=== PATIENT | female | born 1970 | race Caucasian/White ===

== ENCOUNTER → 2019-02-16 | Outpatient (CLI) | payer MEDICARE, OTHER | END | disposition home or self-care (01) | LOC: LABWHC1 14:25 | PROVIDERS: ATTEND Psychiatry & Neurology Pain Medicine | DX: Z01.818 Encounter for other preprocedural examination (principal); Z51.81 Encounter for therapeutic drug level monitoring | CPT/HCPCS: 36415; 93005 ==

== ENCOUNTER → 2019-06-21 | Outpatient (CLI) | payer MEDICARE, OTHER ==
[2019-06-21 15:02] VITALS: BP 126/74; PULSE 107; TEMP 98.3; BMI 41.2
[2019-06-21 15:54] LABS: HCT 44.4 % (34.0-46.0); HGB 14.7 gm/dL (11.4-16.0); MCH 28.7 pg (25.0-35.0); MCHC 33.1 g/dL (31.0-37.0); MCV 86.8 fL (80.0-100.0); Mean Platelet Volume 6.6; Platelet Count 358 k/uL (150-450); RBC 5.12 m/uL (3.80-5.40); RDW 14.2 % (11.5-15.5); WBC 10.9 k/uL (3.8-10.6)
--- NOTE | 2019-06-21 16:33 | P.HPBAR ---
Bariatric H&P - History & Physicial H&P Date: 06/21/19 History & Physicial: Visit/CC: gastric sleeve consult Patient initial contact: Initial weight: 95.708 kg Initial weight in pounds: 211.00 Height: 5 ft Initial BMI: 41.2 Last weight: Current weight: 95.708 kg Current weight in pounds: 211.00 Current BMI: 41.2 [place] body weight (based on NIH guidelines): 45.359 kg Excess body weight loss: 0.0% The patient is a 49 year-old F who presents for Bariatric Assessment. The patient presents today for initial consultation for gastric sleeve. She has a good understanding of the sleeve gastrectomy. She is morbidly obese. Her BMI is 42. Past Medical History History of Any Multi-Drug Resistant Organisms: None Reported Past Surgical History: Appendectomy, Section, Hysterectomy, Tonsillectomy Past Anesthesia/Blood Transfusion Reactions: Postoperative Nausea & Vomiting (PONV) Smoking Status: Former smoker Surgical - Exam Vital Signs Temp Pulse BP 98.3 F 107 H 126/74 06/21/19 14:52 06/21/19 14:52 06/21/19 14:52 - General well developed, well nourished, no distress - Eyes PERRL - ENT normal pinna - Neck no masses - Respiratory normal expansion - Cardiovascular Rhythm: regular - Abdomen Abdomen: soft, non tender Results - Labs 06/21/19 15:39 Abnormal Lab Results - Last 24 Hours (Table) 06/21/19 Range/Units 15:39 WBC 10.9 H (3.8-10.6) k/uL Bariatric Assessment & Plan Plan: Morbid obesity, BMI 42. Patient will undergo EGD to evaluate for possible gastritis. She'll follow-up in the clinic after this has been performed. Bariatric Checklist Checklist: Plan: Checklist: EGD: 1. Hiatal hernia: 2. H. Pylori: HgbA1c: Vitamin D: Smoking: Former smoker Primary care physician referral: Blanquita Camacho Psychiatry clearance: Cardiology clearance: Sleep study: Diet journal: VTE risk score: VTE risk level: Rehab needs at discharge:
[2019-06-22 00:38] LABS: Vitamin D 25 Hydroxy 25.4 ng/mL (30.0-100.0)
[2019-06-22 00:44] LABS: African American GFR (CKD) 98.9 (60.0-200.0); Albumin 4.3 g/dL (3.80-4.90); Albumin/Globulin Ratio 1.87 (1.60-3.17); Anion Gap 7.8 mmol/L (4.00-12.00); BUN/Creat Ratio 13.75 Ratio (12.00-20.00); Calcium 8.7 mg/dL (8.7-10.3); Carbon Dioxide 21.2 mmol/L (21.6-31.8); Globulin 2.3 g/dL (1.6-3.3); Potassium 4.5 mmol/L (3.5-5.5); Total Bilirubin 0.3 mg/dL (0.3-1.2); Total Protein 6.6 g/dL (6.2-8.2)
[2019-06-22 02:06] LABS: Hemoglobin A1C 6.2 % (4.0-6.0)
== END ==
LOC: BARWHC3 14:20
PROVIDERS: ATTEND Surgery
DX: E66.01 Morbid (severe) obesity due to excess calories (principal); E44.0 Moderate protein-calorie malnutrition; E55.9 Vitamin D deficiency, unspecified; Z90.89 Acquired absence of other organs; Z68.41 Body mass index [BMI] 40.0-44.9, adult; Z87.891 Personal history of nicotine dependence
CPT/HCPCS: 84425; 80053; 82607; 84443; 85027; 82306; 83036; G0463; 99211

== ENCOUNTER 2019-07-13 06:56 | Day surgery (SDC) | payer MEDICARE, OTHER ==
[2019-07-09 16:39] VITALS: BMI 36.2
[~2019-07-13 06:56] MED LIST: LACTATED RINGERS 1,000 ML IV SCH
[2019-07-13] MEDS ORDERED: LACTATED RINGERS 1,000 ML IV ONE (07:07)
[2019-07-13 07:21] LABS: Glucose,Whole Blood 105 mg/dL (75-99)
[2019-07-13 07:33] VITALS: TEMP 98.3
[2019-07-13] MEDS ORDERED: GLYCOPYRROLATE 0.2 MG/ML 2 ML VIAL ONE (07:47)
[2019-07-13] MEDS ORDERED: LIDOCAINE 1% INJ 10MG/ML (20 ML MDV) ONE (07:47)
[2019-07-13] MEDS ORDERED: PROPOFOL 10 MG/ML 20 ML VIAL IV ONE (07:47)
[2019-07-13] MEDS ORDERED: ONDANSETRON 4 MG/2 ML VIAL ONE (07:47)
--- NOTE | 2019-07-13 08:10 | P.GSHP ---
History of Present Illness H&P Date: 07/13/19 Chief Complaint: Morbid obesity This a 49-year-old female who presents today for EGD. Patient's had issues with morbid obesity. Her BMI is 37. She is undergoing workup for sleeve gastrectomy. She's had complete GERD. Past Medical History Past Medical History: Cancer, Fibromyalgia, Hypertension, Neurologic Disorder, Osteoarthritis (OA), Rheumatoid Arthritis (RA) Additional Past Medical History / Comment(s): Cervical CA in her 20's. 3 bad discs in spine, 2 in cervical; neuropathy legs/ feet. Intracranial HTN, affecting vision - loss 80% in Rt eye. History of Any Multi-Drug Resistant Organisms: None Reported Past Surgical History: Appendectomy, Section, Hysterectomy, Tonsillectomy Additional Past Surgical History / Comment(s): Colonoscopy Past Anesthesia/Blood Transfusion Reactions: Family History of Problems w/ Anesthesia, Motion Sickness, Postoperative Nausea & Vomiting (PONV) Additional Past Anesthesia/Blood Transfusion Reaction / Comment(s): Mother has PONV. Smoking Status: Former smoker - Past Family History Mother Family Medical History: Cancer Additional Family Medical History / Comment(s): Uterine, Breast CA Medications and Allergies Home Medications Medication Instructions Recorded Confirmed Type Aspirin [Durlaza] 162 mg PO HS 06/21/19 07/09/19 History Baclofen [Lioresal] 10 - 20 mg PO HS 06/21/19 07/13/19 History DULoxetine HCL [Cymbalta] 30 mg PO BID 06/21/19 07/13/19 History DULoxetine HCL [Cymbalta] 60 mg PO BID 06/21/19 07/13/19 History HYDROcodone/APAP 10-325MG [[place] 1 tab PO QID PRN 06/21/19 07/13/19 History 10-325] Losartan [Cozaar] 50 mg PO DAILY 06/21/19 07/13/19 History Melatonin 12 mg PO HS 06/21/19 07/13/19 History Multivitamins, Thera [Multivitamin 1 tab PO DAILY 06/21/19 07/09/19 History (formulary)] Naproxen Sodium [Naprelan] 500 mg PO BID 06/21/19 07/09/19 History Pregabalin [Lyrica] 150 mg PO TID 06/21/19 07/13/19 History acetaZOLAMIDE [Diamox] 500 mg PO BID 06/21/19 07/13/19 History Ergocalciferol [Vitamin D2] 50,000 unit PO Q7D 07/09/19 07/09/19 History Allergies Allergy/AdvReac Type Severity Reaction Status Date / Time Iodinated Contrast Media Allergy Anaphylaxis Verified 07/13/19 07:15 [Iodinated Contrast- Oral and IV Dye] latex Allergy Rash/Hives Verified 07/13/19 07:15 morphine Allergy Rash/Hives Verified 07/13/19 07:15 Penicillins Allergy Anaphylaxis Verified 07/13/19 07:15 Surgical - Exam Vital Signs Pulse Resp BP Pulse Ox 86 12 129/85 96 07/13/19 07:12 07/13/19 07:12 07/13/19 07:12 07/13/19 07:12 - General well developed, well nourished, no distress - Eyes PERRL - ENT normal pinna - Neck no masses - Respiratory normal expansion - Cardiovascular Rhythm: regular - Abdomen Abdomen: soft, non tender Results - Labs Abnormal Lab Results - Last 24 Hours (Table) 07/13/19 Range/Units 07:17 POC Glucose (mg/dL) 105 H (75-99) mg/dL Assessment and Plan Assessment: Morbid obesity BMI 37 We'll perform EGD.
--- NOTE | 2019-07-13 08:16 | P.OP ---
Date of Procedure: 07/13/19 Preoperative Diagnosis: Morbid obesity GERD Postoperative Diagnosis: Antral gastritis Morbid obesity Procedure(s) Performed: EGD Anesthesia: MAC Surgeon: Rachid Porter Pathology: other (Antrum) Condition: stable Disposition: PACU Description of Procedure: The patient's placed on the endoscopy table in the lateral position. She received IV sedation. The gastroscope placed oropharynx and passed into the esophagus and stomach. Scope was placed through the pylorus. The first and second portion of the duodenum. Normal. Scope was then brought back the antrum this. Mildly inflamed. A biopsies performed. Scope was unretroflexed and remainder of the stomach appeared normal. There was no significant hiatal hernia. The GE junction was at 40 cm the distal esophagus and proximal esophagus appeared normal. Scope was withdrawn for patient.
[2019-07-13 08:33] VITALS: BP 105/71; PULSE 83; RESP 16
== END 2019-07-13 08:42 | disposition home or self-care (01) ==
LOC: ORWHC2ENDO 06:56
PROVIDERS: ATTEND Surgery
DX: K29.50 Unspecified chronic gastritis without bleeding (principal); E66.01 Morbid (severe) obesity due to excess calories; Z68.37 Body mass index [BMI] 37.0-37.9, adult; M79.7 Fibromyalgia; I10 Essential (primary) hypertension; M19.90 Unspecified osteoarthritis, unspecified site; M06.9 Rheumatoid arthritis, unspecified; G62.9 Polyneuropathy, unspecified; G93.2 Benign intracranial hypertension; H54.61 Unqualified visual loss, right eye, normal vision left eye; Z85.41 Personal history of malignant neoplasm of cervix uteri; Z90.710 Acquired absence of both cervix and uterus; Z87.891 Personal history of nicotine dependence; Z80.3 Family history of malignant neoplasm of breast; Z80.49 Family history of malignant neoplasm of other genital organs; Z79.82 Long term (current) use of aspirin; Z79.1 Long term (current) use of non-steroidal anti-inflammatories (NSAID); Z79.891 Long term (current) use of opiate analgesic; Z79.899 Other long term (current) drug therapy; Z88.5 Allergy status to narcotic agent; Z88.0 Allergy status to penicillin; Z91.041 Radiographic dye allergy status; Z91.040 Latex allergy status
CPT/HCPCS: 88305; 43239; J2405; J2001; J2704

== ENCOUNTER → 2019-08-23 | Outpatient (CLI) | payer MEDICARE, OTHER ==
--- NOTE | 2019-08-23 17:55 | P.HPBAR ---
Bariatric H&P - History & Physicial H&P Date: 08/23/19 History & Physicial: Visit/CC: Patient initial contact: Initial weight: 95.708 kg Initial weight in pounds: Height: Initial BMI: Last weight: Current weight: Current weight in pounds: Current BMI: [place] body weight (based on NIH guidelines): Excess body weight loss: The patient is a 49 year-old F who presents for Bariatric Assessment. Patient presents today for presurgical consultation. We went over the risks and be nefits of sleeve gastrectomy. She has an excellent understanding of the sleeve gastrectomy. Patient morbid obesity. Her BMI is over 35. Past Medical History Past Medical History: Cancer, Fibromyalgia, Hypertension, Neurologic Disorder, Osteoarthritis (OA), Rheumatoid Arthritis (RA) Additional Past Medical History / Comment(s): Cervical CA in her 20's. 3 bad discs in spine, 2 in cervical; neuropathy legs/ feet. Intracranial HTN, affecting vision - loss 80% in Rt eye. History of Any Multi-Drug Resistant Organisms: None Reported Past Surgical History: Appendectomy, Section, Hysterectomy, Tonsillectomy Additional Past Surgical History / Comment(s): Colonoscopy Past Anesthesia/Blood Transfusion Reactions: Family History of Problems w/ Anesthesia, Motion Sickness, Postoperative Nausea & Vomiting (PONV) Additional Past Anesthesia/Blood Transfusion Reaction / Comm: Mother has PONV. Smoking Status: Former smoker - Past Family History Mother Family Medical History: Cancer Additional Family Medical History / Comment(s): Uterine, Breast CA Surgical - Exam - General well developed, well nourished, no distress - Eyes PERRL - Abdomen Abdomen: soft, non tender Bariatric Assessment & Plan Plan: Morbid obesity. Patient will be scheduled for sleeve gastrectomy once her insurance authorization are met. She has an excellent understanding of the risks of surgery. Bariatric Checklist Checklist: Plan: Checklist: EGD: 1. Hiatal hernia: 2. H. Pylori: HgbA1c: Vitamin D: Smoking: Former smoker Primary care physician referral: Blanquita Camacho Psychiatry clearance: Cardiology clearance: Sleep study: Diet journal: VTE risk score: VTE risk level: Rehab needs at discharge:
[2019-08-24 09:52] VITALS: BP 116/73; PULSE 93; RESP 16; TEMP 97.5; BMI 35.5
== END | disposition home or self-care (01) ==
LOC: BARWHC3 15:30
PROVIDERS: ATTEND Surgery
DX: E66.01 Morbid (severe) obesity due to excess calories (principal); Z87.891 Personal history of nicotine dependence; Z68.35 Body mass index [BMI] 35.0-35.9, adult; Z90.710 Acquired absence of both cervix and uterus; Z98.890 Other specified postprocedural states
CPT/HCPCS: 99201

== ENCOUNTER → 2019-09-06 | Outpatient (CLI) | payer MEDICARE, OTHER ==
[2019-09-06 13:37] VITALS: BMI 35.1
== END | disposition home or self-care (01) ==
LOC: BARWHC3 11:08
PROVIDERS: ATTEND Surgery
DX: E66.01 Morbid (severe) obesity due to excess calories (principal); Z68.35 Body mass index [BMI] 35.0-35.9, adult
CPT/HCPCS: 97804

== ENCOUNTER → 2019-09-21 | Outpatient (CLI) | payer MEDICARE, OTHER ==
[2019-09-21 10:17] LABS: Basophils # (A) 0.1 k/uL (0-0.2); Basophils % (A) 1 %; Eosinophils # (A) 0.3 k/uL (0-0.7); Eosinophils % (A) 3 %; HCT 48.4 % (34.0-46.0); HGB 15.1 gm/dL (11.4-16.0); Lymphocytes # (A) 2.7 k/uL (1.0-4.8); Lymphocytes % (A) 27 %; MCHC 31.2 g/dL (31.0-37.0); MCV 89.8 fL (80.0-100.0); Mean Platelet Volume 7.4; Monocytes # (A) 0.3 k/uL (0-1.0); Monocytes % (A) 3 %; Neutrophils # (A) 6.3 k/uL (1.3-7.7); Neutrophils % (A) 64 %; Platelet Count 290 k/uL (150-450); RBC 5.39 m/uL (3.80-5.40); RDW 13.8 % (11.5-15.5); WBC 9.8 k/uL (3.8-10.6)
[2019-09-21 10:47] LABS: ALT 11 U/L (4-34); AST 20 U/L (14-36); African American GFR (CKD) >90 (>60 ml/min/1.73 sqM); Albumin 4.1 g/dL (3.5-5.0); Alkaline Phosphatase 53 U/L (38-126); Anion Gap 8 mmol/L; Blood Urea Nitrogen 12 mg/dL (7-17); Calcium 9.3 mg/dL (8.4-10.2); Carbon Dioxide 21 mmol/L (22-30); Chloride 112 mmol/L (98-107); Glucose 147 mg/dL (74-99); Non-African American GFR(CKD) 80 (>60 ml/min/1.73 sqM); Potassium 4.1 mmol/L (3.5-5.1); Sodium 141 mmol/L (137-145); Total Bilirubin 0.6 mg/dL (0.2-1.3); Total Protein 7.3 g/dL (6.3-8.2)
== END | disposition home or self-care (01) ==
LOC: LABWHC1 09:37
PROVIDERS: ATTEND Surgery
DX: Z01.812 Encounter for preprocedural laboratory examination (principal)
CPT/HCPCS: 36415; 80053; 85025

== ENCOUNTER 2019-10-12 09:15 | Inpatient (IN) | payer MEDICARE, OTHER ==
[~2019-10-12 09:15] MED LIST changes: +CLINDAMYCIN 900 MG in DEXTROSE 5% IN WATER 50 ML IVPB ONE; +ENOXAPARIN 40 MG/0.4 ML SYRINGE SQ ONE; +GENTAMICIN 350 MG in SODIUM CHLORIDE 0.9% 100 ML IVPB ONE; -LACTATED RINGERS 1,000 ML IV SCH
[2019-10-12] MEDS ORDERED: LIDOCAINE 1% 20 ML VIAL (10MG/ML) FOR IV START INTRADERMA ONE (10:35)
[2019-10-12] MEDS ORDERED: LACTATED RINGERS 1,000 ML IV ONE ×3 (10:36→13:06)
[2019-10-12] MEDS ORDERED: ONDANSETRON 4 MG/2 ML VIAL IVP ONE ×2 (10:41→13:50)
[2019-10-12] MEDS ORDERED: DEXAMETHASONE SOD PHOS (MDV) 100 MG/10 ML VIAL IVP ONE (10:41)
[2019-10-12] MEDS ORDERED: SCOPOLAMINE 1.5MG/72HR PATCH TRANSDERM ONE (10:44)
--- NOTE | 2019-10-12 11:34 | P.GSHP ---
History of Present Illness H&P Date: 10/12/19 Chief Complaint: Morbid obesity, BMI 35 This a 49-year-old female who presents today for laparoscopic sleeve gastrectomy. Patient has had lifetime problems obesity. Her BMI is 35. She has multiple coronary. Patient aware the risks of surgery including conversion to the open procedure injury to the stomach liver spleen. She is also aware of the risk of gastric staple line disruption, bleeding or scarring. Past Medical History Past Medical History: Cancer, Fibromyalgia, Hypertension, Neurologic Disorder, Osteoarthritis (OA), Rheumatoid Arthritis (RA) Additional Past Medical History / Comment(s): MARCH 26: Intracranial HTN, affecting vision - loss 75% in Rt eye. Cervical CA in her 20's. 3 bad discs in spine, 2 in cervical; neuropathy legs/ feet. History of Any Multi-Drug Resistant Organisms: None Reported Past Surgical History: Appendectomy, Section, Hysterectomy, Tonsillectomy Additional Past Surgical History / Comment(s): Colonoscopy, egd. Past Anesthesia/Blood Transfusion Reactions: Family History of Problems w/ Anesthesia, Motion Sickness, Postoperative Nausea & Vomiting (PONV) Additional Past Anesthesia/Blood Transfusion Reaction / Comment(s): Mother has PONV. Past Psychological History: Anxiety, Depression Additional Psychological History / Comment(s): Past situational depression. Smoking Status: Former smoker Past Alcohol Use History: None Reported Additional Past Alcohol Use History / Comment(s): Smoked age 12, on/off, up to 1 ppd, quit 2015. No ETOH since 2008. Past Drug Use History: None Reported - Past Family History Mother Family Medical History: Cancer Additional Family Medical History / Comment(s): Uterine, Breast CA Medications and Allergies Home Medications Medication Instructions Recorded Confirmed Type Baclofen [Lioresal] 10 - 20 mg PO HS 06/21/19 10/12/19 History DULoxetine HCL [Cymbalta] 30 mg PO BID 06/21/19 10/12/19 History DULoxetine HCL [Cymbalta] 60 mg PO BID 06/21/19 10/12/19 History HYDROcodone/APAP 10-325MG [[place] 1 tab PO QID PRN 06/21/19 10/12/19 History 10-325] Melatonin 12 mg PO HS PRN 06/21/19 10/12/19 History Multivitamins, Thera [Multivitamin 1 tab PO DAILY 06/21/19 10/12/19 History (formulary)] Naproxen Sodium [Naprelan] 500 mg PO BID 06/21/19 10/12/19 History Pregabalin [Lyrica] 150 mg PO TID 06/21/19 10/12/19 History acetaZOLAMIDE [Diamox] 500 mg PO HS 06/21/19 10/12/19 History Ergocalciferol [Vitamin D2] 50,000 unit PO WE 07/09/19 10/12/19 History Allergies Allergy/AdvReac Type Severity Reaction Status Date / Time adhesive Allergy Rash/Hives Verified 10/04/19 09:26 Iodinated Contrast Media Allergy Anaphylaxis Verified 10/04/19 09:01 [Iodinated Contrast- Oral and IV Dye] latex Allergy Rash/Hives Verified 10/04/19 09:01 morphine Allergy Rash/Hives Verified 10/04/19 09:01 Penicillins Allergy Anaphylaxis Verified 10/04/19 09:01 Surgical - Exam Vital Signs Temp Pulse Resp BP Pulse Ox 97.2 F L 96 16 157/70 98 10/12/19 10:34 10/12/19 10:34 10/12/19 10:34 10/12/19 10:34 10/12/19 10:34 BMI 35 - General well developed, well nourished, no distress - Eyes PERRL - ENT normal pinna - Neck no masses - Respiratory normal expansion - Cardiovascular Rhythm: regular - Abdomen Abdomen: soft, non tender Assessment and Plan Assessment: Morbid obesity. We'll perform laparoscopic sleeve gastrectomy.
[2019-10-12] MEDS ORDERED: GLYCOPYRROLATE 0.2 MG/ML 2 ML VIAL ONE (12:05)
[2019-10-12] MEDS ORDERED: ROCURONIUM BROMIDE 10 MG/ML 10 ML VIAL IV ONE (12:05)
[2019-10-12] MEDS ORDERED: DEXAMETHASONE SOD PHOS (MDV) 100 MG/10 ML VIAL ONE (12:05)
[2019-10-12] MEDS ORDERED: PROPOFOL 10 MG/ML 20 ML VIAL IV ONE (12:05)
[2019-10-12] MEDS ORDERED: fentaNYL (PF) 50 MCG/ML 2 ML AMP ONE (12:05)
[2019-10-12] MEDS ORDERED: MIDAZOLAM 2 MG/2 ML VIAL ONE (12:05)
[2019-10-12] MEDS ORDERED: NEOSTIGMINE 1 MG/ML 10 ML VIAL ONE (12:05)
[2019-10-12] MEDS ORDERED: KETOROLAC 30 MG/ML 1 ML VIAL ONE (12:05)
[2019-10-12] MEDS ORDERED: LIDOCAINE 1% INJ 10MG/ML (20 ML MDV) ONE (12:05)
[2019-10-12] MEDS ORDERED: BUPIVACAIN-EPI 0.25%-1:200,000 30 ML VIAL SQ ONE (12:43)
[2019-10-12] MEDS ORDERED: HYDROmorphone 1 MG/ML 1 ML SYRINGE IVP ONE ×3 (13:52→14:05)
[2019-10-12] MEDS ORDERED: HYOSCYAMINE ORAL DROPS 1.875 MG/15 ML BOTTLE PO PRN (13:55)
[2019-10-12] MEDS ORDERED: NALOXONE 0.4 MG/ML 1 ML VIAL IV PRN (13:55)
[2019-10-12] MEDS ORDERED: diphenhydrAMINE 50 MG/ML 1 ML VIAL IVP ONE (14:07)
[2019-10-12] MEDS ORDERED: HYDROmorphone 0.5 MG/0.5 ML SYRINGE IVP ONE (14:10)
[2019-10-12] MEDS ORDERED: fentaNYL (PF) 50 MCG/ML 2 ML AMP IVP ONE ×2 (14:15→14:45)
[2019-10-12] MEDS ORDERED: SODIUM CHLORIDE 0.9% 1,000 ML IV ONE (14:51)
[2019-10-12] MEDS: HYDROmorphone 1 MG/ML 1 ML SYRINGE IVP PRN ×2 (15:41→19:29)
[2019-10-12] MEDS: ONDANSETRON 4 MG/2 ML VIAL IVP PRN (15:47)
[2019-10-12] MEDS: ALBUTEROL NEBULIZED 2.5 MG/3 ML INHALATION SCH ×2 (16:19→19:34)
[2019-10-12] MEDS: KETOROLAC 30 MG/ML 1 ML VIAL IVP SCH ×2 (18:09→23:33)
[2019-10-12] MEDS: SIMETHICONE 40 MG/0.6 ML DROPS 2,000 MG/30 ML BOTTLE PO PRN ×2 (18:10→23:33)
[2019-10-12] MEDS ORDERED: DULoxetine HCL 30 MG CAPSULE.DR PO SCH (21:00)
[2019-10-12] MEDS ORDERED: DULoxetine HCL 60 MG CAPSULE.DR PO SCH (21:00)
[2019-10-12] MEDS: FAMOTIDINE 20 MG TAB PO SCH (21:18)
[2019-10-12] MEDS: 0.9% NACL WITH KCL 20 MEQ/L 1,000 ML IV SCH ×2 (21:27→21:28)
[2019-10-12] MEDS: CLINDAMYCIN 900 MG in DEXTROSE 5% IN WATER 50 ML IVPB SCH ×2 (21:27)
[2019-10-12] MEDS: acetaZOLAMIDE 250 MG TAB PO SCH (21:55)
[2019-10-12] MEDS ORDERED: PREGABALIN 75 MG CAP PO SCH (22:00)
[2019-10-13] MEDS: HYDROmorphone 1 MG/ML 1 ML SYRINGE IVP PRN ×4 (00:40→15:37)
[2019-10-13] MEDS: CLINDAMYCIN 900 MG in DEXTROSE 5% IN WATER 50 ML IVPB SCH ×2 (04:09)
[2019-10-13] MEDS: 0.9% NACL WITH KCL 20 MEQ/L 1,000 ML IV SCH ×3 (04:09→19:43)
[2019-10-13] MEDS: KETOROLAC 30 MG/ML 1 ML VIAL IVP SCH ×4 (05:07→23:40)
[2019-10-13] MEDS: ENOXAPARIN 40 MG/0.4 ML SYRINGE SQ SCH ×2 (05:08→18:00)
[2019-10-13] MEDS: diphenhydrAMINE 50 MG/ML 1 ML VIAL IVP PRN ×3 (05:11→17:59)
[2019-10-13 08:44] LABS: Basophils % (A) 0 %; Eosinophils % (A) 0 %; HCT 38.4 % (34.0-46.0); HGB 12.3 gm/dL (11.4-16.0); Lymphocytes # (A) 1.8 k/uL (1.0-4.8); Lymphocytes % (A) 12 %; MCH 28.7 pg (25.0-35.0); MCV 89.5 fL (80.0-100.0); Monocytes # (A) 0.9 k/uL (0-1.0); Monocytes % (A) 6 %; Neutrophils % (A) 82 %; Platelet Count 314 k/uL (150-450); RDW 13.6 % (11.5-15.5); WBC 15.9 k/uL (3.8-10.6)
[2019-10-13 08:49] LABS: African American GFR (CKD) >90 (>60 ml/min/1.73 sqM); Anion Gap 8 mmol/L; Blood Urea Nitrogen 10 mg/dL (7-17); Calcium 8.4 mg/dL (8.4-10.2); Carbon Dioxide 20 mmol/L (22-30); Chloride 111 mmol/L (98-107); Non-African American GFR(CKD) 86 (>60 ml/min/1.73 sqM); Phosphorus 3.1 mg/dL (2.5-4.5); Sodium 139 mmol/L (137-145)
[2019-10-13] MEDS ORDERED: DULoxetine HCL 60 MG CAPSULE.DR PO SCH (09:15)
[2019-10-13] MEDS: ALBUTEROL NEBULIZED 2.5 MG/3 ML INHALATION SCH ×4 (09:20→19:44)
[2019-10-13] MEDS: PANTOPRAZOLE 40 MG/10 ML VIAL IV SCH (09:23)
[2019-10-13] MEDS: PREGABALIN 75 MG CAP PO SCH ×3 (09:23→22:10)
--- NOTE | 2019-10-13 09:49 | FL ---
EXAMINATION TYPE: FL UGI DATE OF EXAM: 10/13/2019 COMPARISON: None HISTORY: Postop gastric sleeve TECHNIQUE: A single contrast UGI study is performed with thin barium. 44 seconds fluoroscopy time, 14 images. FINDINGS: Contrast passes from the distal esophagus through the gastric sleeve with mild hesitancy. N o extravasation of contrast is evident. No free air is noted during this examination. Overhead radiographs were obtained which are unremarkable. IMPRESSIONS: 1. Normal post gastric sleeve without obstruction or hesitancy. No extravasation.
[2019-10-13] MEDS: FAMOTIDINE 20 MG TAB PO SCH ×2 (10:32→21:13)
[2019-10-13 11:21] VITALS: BMI 34.5
[2019-10-13] MEDS: DULoxetine HCL 30 MG CAPSULE.DR PO SCH ×2 (11:49→21:13)
--- NOTE | 2019-10-13 11:49 | P.PN ---
Subjective Progress Note Date: 10/13/19 CHIEF COMPLAINT: morbid obesity HISTORY OF PRESENT ILLNESS: 49-year-old female who is status post laparoscopic sleeve gastrectomy. Postop day #1. Patient examined this morning at the bedside. She reports her pain is tolerable. Esophagram completed negative for leak or obstruction. She denies nausea or vomiting. She has been ambulating in the hallway. Voiding without difficulty. Vital signs are stable. WBC 15.9. She is afebrile. PHYSICAL EXAM: VITAL SIGNS: Reviewed. GENERAL: Well-developed in no acute distress. HEENT: No sclera icterus. Extraocular movements grossly intact. Moist buccal mucosa. Head is atraumatic, normocephalic. ABDOMEN: Soft. Nondistended. Nontender. Surgical incision sites clean dry and intact without drainage. NEUROLOGIC: Alert and oriented. Cranial nerves II through XII grossly intact. ASSESSMENT: 1. Morbid obesity, status post laparoscopic sleeve gastrectomy PLAN: -Begin bariatric clear liquid diet -Pain control -Incentive spirometer -Increase activity as tolerated -Monitor WBC. Repeat in AM -Likely DC home tomorrow morning per Dr. Porter Nurse practitioner note has been reviewed by physician. Signing provider agrees with the documented findings, assessment, and plan of care. Objective - Vital Signs Vital signs: Vital Signs Temp 97.4 F L 10/13/19 07:00 Pulse 94 10/13/19 07:00 Resp 16 10/13/19 07:00 BP 119/74 10/13/19 07:00 Pulse Ox 96 10/13/19 10:24 Intake & Output 10/12/19 10/13/19 10/13/19 18:59 06:59 18:59 Intake Total 2055 1250 Output Total 100 450 Balance 1955 800 Weight 91.3 kg 91.3 kg Intake: IV 2055 Intake, IV Titration 1250 Amount 0.9% NaCl with KCl 20 Meq 1200 /l 1,000 ml @ 150 mls/hr IV .Q6H40M [facility] Rx#: [id number] Clindamycin 900 mg In 50 Dextrose 5% in Water 50 ml @ 56 mls/hr IVPB Q8H [facility] Rx#:[id number] Output: Urine 450 Estimated Blood Loss 100 Other: # Voids 2 - Labs CBC & Chem 7: 10/13/19 07:25 10/13/19 07:25 Labs: Abnormal Lab Results - Last 24 Hours (Table) 10/13/19 10/13/19 Range/Units 07:25 07:25 WBC 15.9 H (3.8-10.6) k/uL Neutrophils # 13.0 H (1.3-7.7) k/uL Chloride 111 H (98-107) mmol/L Carbon Dioxide 20 L (22-30) mmol/L
[2019-10-13] MEDS: ONDANSETRON 4 MG/2 ML VIAL IVP PRN (15:37)
[2019-10-13] MEDS: acetaZOLAMIDE 250 MG TAB PO SCH (21:13)
[2019-10-13] MEDS: HYDROcodone/APAP 15 ML SOLUTION PO PRN (21:13)
[2019-10-14] MEDS: 0.9% NACL WITH KCL 20 MEQ/L 1,000 ML IV SCH (01:47)
[2019-10-14] MEDS: KETOROLAC 30 MG/ML 1 ML VIAL IVP SCH ×2 (05:26→14:43)
[2019-10-14] MEDS: ENOXAPARIN 40 MG/0.4 ML SYRINGE SQ SCH (05:26)
[2019-10-14 07:29] LABS: Basophils # (A) 0.1 k/uL (0-0.2); Basophils % (A) 1 %; Eosinophils # (A) 0.2 k/uL (0-0.7); Eosinophils % (A) 2 %; HCT 44.3 % (34.0-46.0); HGB 13.6 gm/dL (11.4-16.0); Hypochromasia Slight; Lymphocytes # (A) 4.4 k/uL (1.0-4.8); Lymphocytes % (A) 36 %; MCH 28.3 pg (25.0-35.0); MCHC 30.7 g/dL (31.0-37.0); Mean Platelet Volume 7.4; Monocytes # (A) 0.6 k/uL (0-1.0); Monocytes % (A) 5 %; Neutrophils # (A) 6.7 k/uL (1.3-7.7); Neutrophils % (A) 55 %; Platelet Count 296 k/uL (150-450); RBC 4.81 m/uL (3.80-5.40); RDW 13.9 % (11.5-15.5); WBC 12.2 k/uL (3.8-10.6)
[2019-10-14] MEDS: ALBUTEROL NEBULIZED 2.5 MG/3 ML INHALATION SCH ×2 (07:57→11:38)
[2019-10-14 08:26] VITALS: BP 123/82; PULSE 85; RESP 12; TEMP 97.9
[2019-10-14] MEDS: FAMOTIDINE 20 MG TAB PO SCH (08:51)
[2019-10-14] MEDS: PREGABALIN 75 MG CAP PO SCH (08:51)
[2019-10-14] MEDS: PANTOPRAZOLE 40 MG/10 ML VIAL IV SCH (08:52)
[2019-10-14] MEDS: DULoxetine HCL 30 MG CAPSULE.DR PO SCH (08:52)
[2019-10-14] MEDS: HYDROcodone/APAP 15 ML SOLUTION PO PRN (09:01)
[2019-10-14] MEDS ORDERED: HYDROcodone/APAP 10-325MG 1 EACH TAB PO PRN (09:30)
[2019-10-14] MEDS ORDERED: HYDROcodone/APAP 5-325MG 1 EACH TAB PO STA (09:31)
--- NOTE | 2019-10-14 10:20 | P.CONS ---
History of Present Illness - Reason for Consult Consult date: 10/13/19 medical management Requesting physician: Rachid Porter - Chief Complaint obesity - History of Present Illness Nelly Feldman is a 49 yo F with PMH of morbid obesity, fibromyalgia, intracranial HTN who is admitted for a scheduled sleeve gastrectomy. She is POD#1 today, feeling overall well. She denies any nausea or vomiting. She is ambulating the halls and feels that helps keep her abdominal pain controlled. She denies chest pain, shortness of breath, vision change, fever, chills. Labs reviewed today and show leukocytosis to 15k. Review of Systems All systems: negative Constitutional: Reports malaise, Denies chills, Denies fever Eyes: denies blurred vision, denies pain Ears, nose, mouth and throat: Denies headache, Denies sore throat Cardiovascular: Denies chest pain, Denies shortness of breath Respiratory: Denies cough Gastrointestinal: Reports abdominal pain, Reports loss of appetite, Denies diarrhea, Denies hematochezia, Denies nausea, Denies vomiting Genitourinary: Denies dysuria, Denies hematuria Musculoskeletal: Denies myalgias Integumentary: Denies pruritus, Denies rash Neurological: Denies numbness, Denies weakness Psychiatric: Denies anxiety, Denies depression Endocrine: Denies fatigue, Denies weight change Past Medical History Past Medical History: Cancer, Fibromyalgia, Hypertension, Neurologic Disorder, Osteoarthritis (OA), Rheumatoid Arthritis (RA) Additional Past Medical History / Comment(s): MARCH 26: Intracranial HTN, affecting vision - loss 75% in Rt eye. Cervical CA in her 20's. 3 bad discs in spine, 2 in cervical; neuropathy legs/ feet. History of Any Multi-Drug Resistant Organisms: None Reported Past Surgical History: Appendectomy, Section, Hysterectomy, Tonsillectomy Additional Past Surgical History / Comment(s): Colonoscopy, egd. Past Anesthesia/Blood Transfusion Reactions: Family History of Problems w/ Anesthesia, Motion Sickness, Postoperative Nausea & Vomiting (PONV) Additional Past Anesthesia/Blood Transfusion Reaction / Comm: Mother has PONV. Past Psychological History: Anxiety, Depression Additional Psychological History / Comment(s): Past situational depression. Smoking Status: Former smoker Past Alcohol Use History: None Reported Additional Past Alcohol Use History / Comment(s): Smoked age 12, on/off, up to 1 ppd, quit 2015. No ETOH since 2008. Past Drug Use History: None Reported - Past Family History Mother Family Medical History: Cancer Additional Family Medical History / Comment(s): Uterine, Breast CA Medications and Allergies Home Medications Medication Instructions Recorded Confirmed Type Baclofen [Lioresal] 10 - 20 mg PO HS 06/21/19 10/12/19 History DULoxetine HCL [Cymbalta] 30 mg PO BID 06/21/19 10/12/19 History DULoxetine HCL [Cymbalta] 60 mg PO BID 06/21/19 10/12/19 History HYDROcodone/APAP 10-325MG [[place] 1 tab PO QID PRN 06/21/19 10/12/19 History 10-325] Melatonin 12 mg PO HS PRN 06/21/19 10/12/19 History Pregabalin [Lyrica] 150 mg PO TID 06/21/19 10/12/19 History acetaZOLAMIDE [Diamox] 500 mg PO HS 06/21/19 10/12/19 History Bisacodyl [Dulcolax] 5 mg PO DAILY PRN #10 tablet. 10/12/19 Rx Omeprazole 40 mg PO DAILY #30 cap 10/12/19 Rx Ondansetron Odt [Zofran Odt] 4 mg PO Q8HR PRN #9 tab 10/12/19 Rx Simethicone 40 mg/0.6 ml Drops 40 mg PO PCHS PRN #30 ml 10/12/19 Rx [Mylicon Drops] Sucralfate [Carafate] 1 gm PO BID #500 ml 10/12/19 Rx Allergies Allergy/AdvReac Type Severity Reaction Status Date / Time adhesive Allergy Rash/Hives Verified 10/04/19 09:26 Iodinated Contrast Media Allergy Anaphylaxis Verified 10/04/19 09:01 [Iodinated Contrast- Oral and IV Dye] latex Allergy Rash/Hives Verified 10/04/19 09:01 morphine Allergy Rash/Hives Verified 10/04/19 09:01 Penicillins Allergy Anaphylaxis Verified 10/04/19 09:01 Physical Exam Vitals: Vital Signs Temp Pulse Resp BP Pulse Ox 10/14/19 07:00 97.9 F 85 12 123/82 97 10/14/19 00:53 98.6 F 93 14 148/79 93 L 10/13/19 19:44 97.8 F 84 18 123/78 96 10/13/19 15:33 98 10/13/19 15:00 98 F 96 16 105/64 97 10/13/19 10:24 96 Intake and Output 10/13/19 10/14/19 10/14/19 22:59 06:59 14:59 Intake Total 950 800 500 Balance 950 800 500 Intake: Intake, IV Titration 800 800 Amount 0.9% NaCl with KCl 20 Meq 800 800 /l 1,000 ml @ 100 mls/hr IV .Q10H [facility] Rx#: [id number] Oral 150 500 Other: Voiding Method Toilet Toilet # Voids 3 # Bowel Movements 0 General: Obese female in no acute distress. Vitals reviewed HEENT: Normocephalic, atraumatic, mucous membranes moist Neck: Supple, no JVD CV: Regular rate and rhythm no murmur Lungs: Normal respiratory effort clear throughout Abdomen: Soft, denies tenderness, laparoscopic incisions C/D/I Lymph: No cervical or axillary lymphadenopathy Neuro: Alert and oriented 3 no focal deficits Skin: Warm and dry Results CBC & Chem 7: 10/14/19 07:05 10/13/19 07:25 Labs: Abnormal Lab Results - Last 24 Hours (Table) 10/14/19 Range/Units 07:05 WBC 12.2 H (3.8-10.6) k/uL MCHC 30.7 L (31.0-37.0) g/dL Assessment and Plan (1) Morbid obesity due to excess calories Current Visit: Yes Status: Acute Code(s): E66.01 - MORBID (SEVERE) OBESITY DUE TO EXCESS CALORIES SNOMED Code(s): 896174656 (2) Intracranial hypertension Current Visit: Yes Status: Acute Code(s): G93.2 - BENIGN INTRACRANIAL HYPERTENSION SNOMED Code(s): 381502157 (3) Fibromyalgia Current Visit: Yes Status: Acute Code(s): M79.7 - FIBROMYALGIA SNOMED Code(s): 686679704 (4) S/P laparoscopic sleeve gastrectomy Current Visit: Yes Status: Acute Code(s): Z98.84 - BARIATRIC SURGERY STATUS SNOMED Code(s): 890157659 Plan: 1. Morbid obesity. S/p sleeve gastrectomy. Advance diet per primary. Pain control. Reactive leukocytosis after procedure, will recheck tomorrow 2. Intracranial HTN. Continue diamox 3. Fibromyalgia. Continue lyrica DVT prophylaxis lovenox
--- NOTE | 2019-10-14 13:38 | P.DS ---
Providers Date of admission: 10/12/19 10:10 Expected date of discharge: 10/14/19 Attending physician: Rachid Porter Consults: 10/12/19 13:55 Consult Physician Routine Consulting Provider: Zion Camacho Reason/Comments: Medical management Do you want consulting provider notified?: Yes Primary care physician: Blanquita Daughertybagh [place] Hospital Course: 49-year-old female who is status post laparoscopic sleeve gastrectomy. Patient is doing well postoperatively without any immediate complications. Esophagram completed negative for leak or obstruction. Tolerating clear liquids without nausea or vomiting. Pain is controlled on oral medications. Vital signs are stable. She is stable for discharge home today. Please see EMR for further hospital course details. Discharge Diagnosis: 1. Morbid obesity, status post laparoscopic sleeve gastrectomy Nurse practitioner note has been reviewed by physician. Signing provider agrees with the documented findings, assessment, and plan of care. Plan - Discharge Summary Discharge Rx Participant: No New Discharge Prescriptions: New Sucralfate [Carafate] 1 gm PO BID #500 ml Bisacodyl [Dulcolax] 5 mg PO DAILY PRN #10 tablet.dr PRN Reason: Constipation Simethicone 40 mg/0.6 ml Drops [Mylicon Drops] 40 mg PO PCHS PRN #30 ml PRN Reason: gas Omeprazole 40 mg PO DAILY #30 cap Ondansetron Odt [Zofran Odt] 4 mg PO Q8HR PRN #9 tab PRN Reason: Nausea Continue HYDROcodone/APAP 10-325MG [[place] 10-325] 1 tab PO QID PRN PRN Reason: Pain DULoxetine HCL [Cymbalta] 60 mg PO BID DULoxetine HCL [Cymbalta] 30 mg PO BID Pregabalin [Lyrica] 150 mg PO TID acetaZOLAMIDE [Diamox] 500 mg PO HS Baclofen [Lioresal] 10 - 20 mg PO HS Melatonin 12 mg PO HS PRN PRN Reason: Insomnia Discontinued Naproxen Sodium [Naprelan] 500 mg PO BID Multivitamins, Thera [Multivitamin (formulary)] 1 tab PO DAILY Ergocalciferol [Vitamin D2] 50,000 unit PO WE Discharge Medication List Baclofen [Lioresal] 10 - 20 mg PO HS 06/21/19 [History] DULoxetine HCL [Cymbalta] 30 mg PO BID 06/21/19 [History] DULoxetine HCL [Cymbalta] 60 mg PO BID 06/21/19 [History] HYDROcodone/APAP 10-325MG [[place] 10-325] 1 tab PO QID PRN 06/21/19 [History] Melatonin 12 mg PO HS PRN 06/21/19 [History] Pregabalin [Lyrica] 150 mg PO TID 06/21/19 [History] acetaZOLAMIDE [Diamox] 500 mg PO HS 06/21/19 [History] Bisacodyl [Dulcolax] 5 mg PO DAILY PRN #10 tablet. 10/12/19 [Rx] Omeprazole 40 mg PO DAILY #30 cap 10/12/19 [Rx] Ondansetron Odt [Zofran Odt] 4 mg PO Q8HR PRN #9 tab 10/12/19 [Rx] Simethicone 40 mg/0.6 ml Drops [Mylicon Drops] 40 mg PO PCHS PRN #30 ml 10/12/19 [Rx] Sucralfate [Carafate] 1 gm PO BID #500 ml 10/12/19 [Rx] Follow up Appointment(s)/Referral(s): Zion Camacho MD [STAFF PHYSICIAN] [facility] [place] - 10/25/19 1:40 pm Patient Instructions/Handouts: Laparoscopic Sleeve Gastrectomy (DC) Activity/Diet/Wound Care/Special Instructions: No driving while taking [place] No lifting over 10 pounds You may shower. No soaking or tub baths Very light activity until you are reevaluated at your follow up appointment with your surgeon Discharge Disposition: HOME SELF-CARE
--- NOTE | 2019-10-14 18:32 | P.PN ---
Subjective Progress Note Date: 10/14/19 Nelly Feldman is a 49 yo F with PMH of morbid obesity, fibromyalgia, intracranial HTN who is admitted for a scheduled sleeve gastrectomy. She is POD#1 today, feeling overall well. She denies any nausea or vomiting. She is ambulating the halls and feels that helps keep her abdominal pain controlled. She denies chest pain, shortness of breath, vision change, fever, chills. Labs reviewed today and show leukocytosis to 15k. 10/14/2019 esophagram reported negative for leak or obstruction. pain better controlled, ambulating, tolerating exertion well. Tolerating bariatric diet as ordered per surgery. Mild nausea, no emesis. Positive flatus and burping. No bowel movement. Denies chest pain, palpitations or shortness of breath. Denies lightheadedness, dizziness or focal deficits. Objective - Vital Signs Vital signs: Vital Signs Temp 97.9 F 10/14/19 07:00 Pulse 85 10/14/19 07:00 Resp 12 10/14/19 07:00 BP 123/82 10/14/19 07:00 Pulse Ox 97 10/14/19 07:00 Intake & Output 10/13/19 10/14/19 10/14/19 18:59 06:59 18:59 Intake Total 1750 500 Balance 1750 500 Weight 91.3 kg Intake: Intake, IV Titration 1600 Amount 0.9% NaCl with KCl 20 Meq 1600 /l 1,000 ml @ 100 mls/hr IV .Q10H DEVON Rx#: [id number] Oral 150 500 Other: Voiding Method Toilet Toilet # Voids 1 3 # Bowel Movements 0 - Exam General: Sitting at side of bed, alert and oriented 3, no acute distress HEENT: Normocephalic, atraumatic, mucous membranes moist Neck: Supple, no JVD CV: Regular rate and rhythm no murmur Lungs: Normal respiratory effort clear throughout Abdomen: Soft, status post surgery, laparoscopic incisions C/D/I, mild supra- umbilical edema. Lymph: No cervical or axillary lymphadenopathy Neuro: Alert and oriented 3 no focal deficits Skin: Warm and dry - Labs CBC & Chem 7: 10/14/19 07:05 10/13/19 07:25 Labs: Abnormal Lab Results - Last 24 Hours (Table) 10/14/19 Range/Units 07:05 WBC 12.2 H (3.8-10.6) k/uL MCHC 30.7 L (31.0-37.0) g/dL Assessment and Plan Assessment: (1) Morbid obesity due to excess calories Current Visit: Yes Status: Acute Code(s): E66.01 - MORBID (SEVERE) OBESITY DUE TO EXCESS CALORIES SNOMED Code(s): 227683082 (2) Intracranial hypertension Current Visit: Yes Status: Acute Code(s): G93.2 - BENIGN INTRACRANIAL HYPERTENSION SNOMED Code(s): 279787483 (3) Fibromyalgia Current Visit: Yes Status: Acute Code(s): M79.7 - FIBROMYALGIA SNOMED Code(s): 875818832 (4) S/P laparoscopic sleeve gastrectomy Current Visit: Yes Status: Acute Code(s): Z98.84 - BARIATRIC SURGERY STATUS SNOMED Code(s): 182961293 Plan: Continue on current medication regime ,monitoring and symptomatic treatment. Pain management/diet as per surgery. Discharge planning in progress for today as per surgery. Follow-up with PCP in 1 week. The impression and plan of care has been dictated as directed. : I performed a history and examination of this patient, discussed the same with the dictator. I agree with the dictator's note ,documented as a scribe. Any additional findings or plans will be noted.
--- NOTE | 2019-10-21 12:55 | P.OP ---
Date of Procedure: 10/12/19 Preoperative Diagnosis: Morbid obesity, BMI 35 Postoperative Diagnosis: Morbid obesity, BMI 35 Procedure(s) Performed: Laparoscopic sleeve gastrectomy Anesthesia: ROSE MARIE Surgeon: Rachid Porter Estimated Blood Loss (ml): 100 Pathology: other (Stomach) Condition: stable Description of Procedure: The patient was placed on the operating room table in the supine position. She received general anesthesia and then was placed in dorsal lithotomy position. Her abdomen was prepped and draped in sterile fashion. The skin incision sites were anesthetized 1% local Xylocaine. And then the skin was incised with an 11 blade in the left lateral position. Using a blade less trocar under direct visualization the peritoneal cavity was entered. The abdomen was insufflated and then a 5 mm laparoscope was placed into the peritoneal cavity. A 5 mm trocar was placed in the right epigastric, and right lateral position. A 15 mm trocar was placed in the supra-umbilical position and another 5 mm trocar was placed in the left lateral position. The left lateral lobe of the liver was retracted. The stomach was visualized. The greater curvature of the stomach was then dissected using the Harmonic scissors. The dissection occurred approximately 5 cm from the pylorus to the level of the left emile. There was no hiatal hernia seen. At this point a 40-[place] bougie dilator was placed the oropharynx and passed into the esophagus and into the stomach by the CHILDREN'S LITERATURE PROFESSOR. The sleeve gastrectomy was performed by using the powered echelon stapler with a seam guard buttress material. Sequential firings of the stapler were performed. The gastric remnant was then brought out through the 15 mm trocar site. The dilator was withdrawn. And a orogastric tube was replaced into the stomach. The stomach was insufflated with 200 mL of methylene blue normal saline. There was no evidence of extravasation. The abdomen was irrigated there is no bleeding seen. The Eric-Maureen device was used to close the 15 mm trocar with 0 Vicryl. Skin was closed with interrupted 3-0 Monocryl sutures once the trochars withdrawn. Dermabond dressing was applied. Patient was sent to recovery in stable condition.
== END 2019-10-14 12:51 | disposition home or self-care (01) | DRG 621 ==
LOC: 2ORMAIN 10:10 → 4SSUR 13:43
PROVIDERS: ADMIT Surgery; ATTEND Surgery
PROC: 0DB64Z3 Excision of Stomach, Percutaneous Endoscopic Approach, Vertical (ICD-10-PCS; principal; 2019-10-12 11:40)
DX: E66.01 Morbid (severe) obesity due to excess calories (principal); D72.829 Elevated white blood cell count, unspecified; F32.9 Major depressive disorder, single episode, unspecified; F41.9 Anxiety disorder, unspecified; G93.2 Benign intracranial hypertension; I10 Essential (primary) hypertension; M06.9 Rheumatoid arthritis, unspecified; M79.7 Fibromyalgia; Z68.35 Body mass index [BMI] 35.0-35.9, adult; Z79.899 Other long term (current) drug therapy; Z80.3 Family history of malignant neoplasm of breast; Z85.41 Personal history of malignant neoplasm of cervix uteri; Z87.891 Personal history of nicotine dependence; Z90.710 Acquired absence of both cervix and uterus
CPT/HCPCS: 74240; 80051; 82310; 82565; 83735; 84100; 84520; 85025; 88307; 94640; 94760; 94762

== ENCOUNTER → 2019-10-18 | Outpatient (CLI) | payer MEDICARE, OTHER ==
--- NOTE | 2019-10-18 16:24 | P.HPBAR ---
Bariatric H&P - History & Physicial H&P Date: 10/18/19 History & Physicial: Visit/CC: Patient initial contact: Initial weight: 95.708 kg Initial weight in pounds: Height: 5 ft 4 in Initial BMI: Last weight: Current weight: 87.861 kg Current weight in pounds: Current BMI: [place] body weight (based on NIH guidelines): Excess body weight loss: The patient is a 49 year-old F who presents for Bariatric Assessment. Patient is one week postop from sleeve gastrectomy. She's doing quite well. Past Medical History Past Medical History: Cancer, Fibromyalgia, Hypertension, Neurologic Disorder, Osteoarthritis (OA), Rheumatoid Arthritis (RA) Additional Past Medical History / Comment(s): Cervical CA in her 20's. 3 bad discs in spine, 2 in cervical; neuropathy legs/ feet. Intracranial HTN, affecting vision - loss 80% in Rt eye. History of Any Multi-Drug Resistant Organisms: None Reported Past Surgical History: Appendectomy, Section, Hysterectomy, Ton sillectomy Additional Past Surgical History / Comment(s): Colonoscopy Past Anesthesia/Blood Transfusion Reactions: Family History of Problems w/ Anest hesia, Motion Sickness, Postoperative Nausea & Vomiting (PONV) Additional Past Anesthesia/Blood Transfusion Reaction / Comm: Mother has PONV. Past Psychological History: Anxiety, Depression Additional Psychological History / Comment(s): Past situational depression. Smoking Status: Former smoker Past Alcohol Use History: None Reported Additional Past Alcohol Use History / Comment(s): Smoked age 12, on/off, up to 1 ppd, quit 2015. No ETOH since 2008. Past Drug Use History: None Reported - Past Family History Mother Family Medical History: Cancer Additional Family Medical History / Comment(s): Uterine, Breast CA Surgical - Exam - General well developed, well nourished, no distress - Eyes PERRL - Abdomen Abdomen: soft, non tender Bariatric Assessment & Plan Plan: Status post sleeve gastrectomy. Patient is doing well. She'll follow-up in 4 weeks. Bariatric Checklist Checklist: Plan: Checklist: EGD: 1. Hiatal hernia: 2. H. Pylori: HgbA1c: Vitamin D: Smoking: Former smoker Primary care physician referral: Blanquita Camacho Psychiatry clearance: Cardiology clearance: Sleep study: Diet journal: VTE risk score: VTE risk level: Rehab needs at discharge:
[2019-10-18 16:46] VITALS: BMI 33.2
[2019-10-20 12:43] VITALS: BP 120/86; PULSE 86; TEMP 97.6
== END | disposition home or self-care (01) ==
LOC: BARWHC3 15:40
PROVIDERS: ATTEND Surgery
DX: Z48.815 Encounter for surgical aftercare following surgery on the digestive system (principal); E66.01 Morbid (severe) obesity due to excess calories; F33.42 Major depressive disorder, recurrent, in full remission; Z87.891 Personal history of nicotine dependence; Z68.33 Body mass index [BMI] 33.0-33.9, adult; Z79.899 Other long term (current) drug therapy
CPT/HCPCS: 97803; G0463; 99211

== ENCOUNTER → 2019-11-08 | Outpatient (CLI) | payer MEDICARE, OTHER ==
[2019-11-08 14:53] VITALS: BP 139/91; PULSE 103; RESP 16; TEMP 98.1; BMI 31.2
[2019-11-08 15:39] LABS: HCT 46.4 % (34.0-46.0); HGB 14.5 gm/dL (11.4-16.0); MCH 27.7 pg (25.0-35.0); MCHC 31.3 g/dL (31.0-37.0); MCV 88.2 fL (80.0-100.0); Mean Platelet Volume 8.6; Platelet Count 320 k/uL (150-450); RBC 5.26 m/uL (3.80-5.40); RDW 13.6 % (11.5-15.5); WBC 9.3 k/uL (3.8-10.6)
[2019-11-08 23:03] LABS: African American GFR (CKD) 98.9 (60.0-200.0); Albumin 4.7 g/dL (3.80-4.90); Albumin/Globulin Ratio 2.04 (1.60-3.17); Anion Gap 11.3 mmol/L (4.00-12.00); BUN/Creat Ratio 11.25 Ratio (12.00-20.00); Calcium 9.7 mg/dL (8.7-10.3); Carbon Dioxide 27.7 mmol/L (21.6-31.8); Globulin 2.3 g/dL (1.6-3.3); Non-African American GFR(CKD) 85.4 (60.0-200.0); Potassium 4.6 mmol/L (3.5-5.5); Total Bilirubin 0.9 mg/dL (0.3-1.2)
[2019-11-08 23:44] LABS: Folate, Serum 15.2 ng/mL
--- NOTE | 2019-11-29 14:21 | P.HPBAR ---
Bariatric H&P - History & Physicial H&P Date: 11/08/19 History & Physicial: Visit/CC: F/U Patient initial contact: Initial weight: 95.708 kg Initial weight in pounds: 211.00 Height: 5 ft 4 in Initial BMI: 36.2 Last weight: Current weight: 82.554 kg Current weight in pounds: 182.00 Current BMI: 31.2 [place] body weight (based on NIH guidelines): 54.431 kg Excess body weight loss: 31.8% The patient is a 49 year-old F who presents for Bariatric Assessment. Patient presents today for sleeve gastrectomy follow-up patient is doing well from a weight loss standpoint. She's had some minimal GERD. Past Medical History Past Medical History: Cancer, Fibromyalgia, Hypertension, Neurologic Disorder, Osteoarthritis (OA), Rheumatoid Arthritis (RA) Additional Past Medical History / Comment(s): Cervical CA in her 20's. 3 bad discs in spine, 2 in cervical; neuropathy legs/ feet. Intracranial HTN, affecting vision - loss 80% in Rt eye. History of Any Multi-Drug Resistant Organisms: None Reported Past Surgical History: Appendectomy, Section, Hysterectomy, Tons illectomy Additional Past Surgical History / Comment(s): Colonoscopy Past Anesthesia/Blood Transfusion Reactions: Family History of Problems w/ Anesthesia, Motion Sickness, Postoperative Nausea & Vomiting (PONV) Additional Past Anesthesia/Blood Transfusion Reaction / Comm: Mother has PONV. Past Psychological History: Anxiety, Depression Additional Psychological History / Comment(s): Past situational depression. Smoking Status: Former smoker Past Alcohol Use History: None Reported Additional Past Alcohol Use History / Comment(s): Smoked age 12, on/off, up to 1 ppd, quit 2015. No ETOH since 2008. Past Drug Use History: None Reported - Past Family History Mother Family Medical History: Cancer Additional Family Medical History / Comment(s): Uterine, Breast CA Surgical - Exam Vital Signs Temp Pulse Resp BP 98.1 F 103 H 16 139/91 11/08/19 14:48 11/08/19 14:48 11/08/19 14:48 11/08/19 14:48 - General well developed, well nourished - Eyes PERRL - ENT normal pinna - Neck no masses - Respiratory normal expansion - Cardiovascular Rhythm: regular - Abdomen Abdomen: soft, non tender Results - Labs 11/08/19 15:06 11/08/19 15:06 Bariatric Assessment & Plan Plan: Status post sleeve gastrectomy. Patient GERD is minimal we observed. She will follow-up in 4 weeks. Bariatric Checklist Checklist: Plan: Checklist: EGD: 1. Hiatal hernia: 2. H. Pylori: HgbA1c: Vitamin D: Smoking: Former smoker Primary care physician referral: Blanquita Camacho Psychiatry clearance: Cardiology clearance: Sleep study: Diet journal: VTE risk score: VTE risk level: Rehab needs at discharge:
== END | disposition home or self-care (01) ==
LOC: BARWHC3 14:30
PROVIDERS: ATTEND Surgery
DX: Z48.815 Encounter for surgical aftercare following surgery on the digestive system (principal); K21.9 Gastro-esophageal reflux disease without esophagitis; E44.0 Moderate protein-calorie malnutrition; E66.01 Morbid (severe) obesity due to excess calories; Z87.891 Personal history of nicotine dependence; Z68.31 Body mass index [BMI] 31.0-31.9, adult; Z98.890 Other specified postprocedural states; Z90.710 Acquired absence of both cervix and uterus
CPT/HCPCS: 84425; 80053; 82607; 82746; 84443; 85027; 82306; 36415; G0463; 99211

== ENCOUNTER → 2019-12-06 | Outpatient (CLI) | payer MEDICARE, OTHER ==
[2019-12-06 14:30] VITALS: BP 123/87; PULSE 114; RESP 16; TEMP 98.1; BMI 29.2
--- NOTE | 2019-12-08 08:10 | P.HPBAR ---
Bariatric H&P - History & Physicial H&P Date: 12/06/19 History & Physicial: Visit/CC: SLEEVE F/U Patient initial contact: Initial weight: 95.708 kg Initial weight in pounds: 211.00 Height: 5 ft 4 in Initial BMI: 36.2 Last weight: Current weight: 77.111 kg Current weight in pounds: 170.00 Current BMI: 29.2 [place] body weight (based on NIH guidelines): 54.431 kg Excess body weight loss: 45.0% The patient is a 49 year-old F who presents for Bariatric Assessment. Patient presents today for sleeve gastrectomy follow-up. She's had some minimal GERD. She has had excellent weight loss. Past Medical History Past Medical History: Cancer, Fibromyalgia, Hypertension, Neurologic Disorder, Osteoarthritis (OA), Rheumatoid Arthritis (RA) Additional Past Medical History / Comment(s): Cervical CA in her 20's. 3 bad discs in spine, 2 in cervical; neuropathy legs/ feet. Intracranial HTN, affecting vision - loss 80% in Rt eye. History of Any Multi-Drug Resistant Organisms: None Reported Past Surgical History: Appendectomy, Section, Hysterectomy, Tonsillectomy Additional Past Surgical History / Comment(s): Colonoscopy Past Anesthesia/Blood Transfusion Reactions: Family History of Problems w/ Anesthesia, Motion Sickness, Postoperative Nausea & Vomiting (PONV) Additional Past Anesthesia/Blood Transfusion Reaction / Comm: Mother has PONV. Past Psychological History: Anxiety, Depression Additional Psychological History / Comment(s): Past situational depression. Smoking Status: Former smoker Past Alcohol Use History: None Reported Additional Past Alcohol Use History / Comment(s): Smoked age 12, on/off, up to 1 ppd, quit 2015. No ETOH since 2008. Past Drug Use History: None Reported - Past Family History Mother Family Medical History: Cancer Additional Family Medical History / Comment(s): Uterine, Breast CA Surgical - Exam Vital Signs Temp Pulse Resp BP 98.1 F 114 H 16 123/87 12/06/19 14:28 12/06/19 14:28 12/06/19 14:28 12/06/19 14:28 - General well developed, well nourished, no distress - Eyes PERRL - ENT normal pinna - Neck no masses - Respiratory normal expansion - Cardiovascular Rhythm: regular - Abdomen Abdomen: soft, non tender Bariatric Assessment & Plan Plan: Status post sleeve gastrectomy. Patient is doing well. Her GERD is minimal will be observed. She'll follow-up in 4 weeks. Bariatric Checklist Checklist: Plan: Checklist: EGD: 1. Hiatal hernia: 2. H. Pylori: HgbA1c: Vitamin D: Smoking: Former smoker Primary care physician referral: Blanquita Camacho Psychiatry clearance: Cardiology clearance: Sleep study: Diet journal: VTE risk score: VTE risk level: Rehab needs at discharge:
== END | disposition home or self-care (01) ==
LOC: BARWHC3 13:55
PROVIDERS: ATTEND Surgery
DX: Z48.815 Encounter for surgical aftercare following surgery on the digestive system (principal); K21.9 Gastro-esophageal reflux disease without esophagitis; Z87.891 Personal history of nicotine dependence; Z90.710 Acquired absence of both cervix and uterus; Z98.890 Other specified postprocedural states
CPT/HCPCS: 97803; G0463; 99211

== ENCOUNTER → 2020-03-14 | Outpatient (CLI) | payer MEDICARE, OTHER ==
[2020-03-14 14:56] LABS: HCT 44.7 % (34.0-46.0); HGB 14.5 gm/dL (11.4-16.0); MCH 29.3 pg (25.0-35.0); MCHC 32.3 g/dL (31.0-37.0); MCV 90.6 fL (80.0-100.0); Mean Platelet Volume 7.9; Platelet Count 258 k/uL (150-450); RBC 4.93 m/uL (3.80-5.40); RDW 13.7 % (11.5-15.5)
[2020-03-14 23:40] LABS: African American GFR (CKD) 116.3 (60.0-200.0); Albumin 4.2 g/dL (3.80-4.90); Anion Gap 7.8 mmol/L (4.00-12.00); BUN/Creat Ratio 11.43 Ratio (12.00-20.00); Carbon Dioxide 25.2 mmol/L (21.6-31.8); Globulin 2.1 g/dL (1.6-3.3); Non-African American GFR(CKD) 100.3 (60.0-200.0); Potassium 4.1 mmol/L (3.5-5.5); Total Bilirubin 0.9 mg/dL (0.2-1.2); Total Protein 6.3 g/dL (6.2-8.2)
[2020-03-15 00:04] LABS: Folate, Serum 16.5 ng/mL
== END | disposition home or self-care (01) ==
LOC: LABWHC1 14:18
PROVIDERS: ATTEND Surgery
DX: E44.0 Moderate protein-calorie malnutrition (principal); E55.9 Vitamin D deficiency, unspecified; E66.01 Morbid (severe) obesity due to excess calories
CPT/HCPCS: 36415; 80053; 82306; 82607; 82746; 84425; 84443; 85027

== ENCOUNTER → 2020-03-27 | Outpatient (CLI) | payer MEDICARE, OTHER ==
[2020-03-27 14:49] VITALS: BP 121/85; PULSE 78; TEMP 98.2; BMI 24.2
--- NOTE | 2020-04-06 12:57 | P.HPBAR ---
Bariatric H&P - History & Physicial H&P Date: 03/27/20 History & Physicial: Visit/CC: five month follow up Patient initial contact: Initial weight: 95.708 kg Initial weight in pounds: 211.00 Height: 5 ft 4 in Initial BMI: 36.2 Last weight: Current weight: 63.957 kg Current weight in pounds: 141.00 Current BMI: 24.2 [place] body weight (based on NIH guidelines): 54.431 kg Excess body weight loss: 76.9% The patient is a 49 year-old F who presents for Bariatric Assessment.patient presents today for sleeve gastrically follow-up. She's had complaints of GERD. al. Past Medical History Past Medical History: Cancer, Fibromyalgia, Hypertension, Neurologic Disorder, Osteoarthritis (OA), Rheumatoid Arthritis (RA) Additional Past Medical History / Comment(s): Cervical CA in her 20's. 3 bad discs in spine, 2 in cervical; neuropathy legs/ feet. Intracranial HTN, affecting vision - loss 80% in Rt eye. History of Any Multi-Drug Resistant Organisms: None Reported Past Surgical History: Appendectomy, Section, Hysterectomy, Tonsillectomy Additional Past Surgical History / Comment(s): Colonoscopy Past Anesthesia/Blood Transfusion Reactions: Family History of Problems w/ Anesthesia, Motion Sickness, Postoperative Nausea & Vomiting (PONV) Additional Past Anesthesia/Blood Transfusion Reaction / Comm: Mother has PONV. Past Psychological History: Anxiety, Depression Additional Psychological History / Comment(s): Past situational depression. Smoking Status: Former smoker Past Alcohol Use History: None Reported Additional Past Alcohol Use History / Comment(s): Smoked age 12, on/off, up to 1 ppd, quit 2015. No ETOH since 2008. Past Drug Use History: None Reported - Past Family History Mother Family Medical History: Cancer Additional Family Medical History / Comment(s): Uterine, Breast CA Surgical - Exam Vital Signs Temp Pulse BP 98.2 F 78 121/85 03/27/20 14:47 03/27/20 14:47 03/27/20 14:47 - General well developed, well nourished, no distress - Eyes PERRL - ENT normal pinna - Neck no masses - Respiratory normal expansion - Cardiovascular Rhythm: regular - Abdomen Abdomen: soft, non tender Bariatric Assessment & Plan Plan: status postssleeve gastrectomymy. Patient is doing quite well. Her GERD is minimal elevator. She'll follow up in 4 weeks. Bariatric Checklist Checklist: Plan: Checklist: EGD: 1. Hiatal hernia: 2. H. Pylori: HgbA1c: Vitamin D: Smoking: Former smoker Primary care physician referral: Blanquita Camacho Psychiatry clearance: Cardiology clearance: Sleep study: Diet journal: VTE risk score: VTE risk level: Rehab needs at discharge:
== END | disposition home or self-care (01) ==
LOC: BARWHC3 14:14
PROVIDERS: ATTEND Surgery
DX: Z48.815 Encounter for surgical aftercare following surgery on the digestive system (principal); Z98.84 Bariatric surgery status; K21.9 Gastro-esophageal reflux disease without esophagitis; Z87.891 Personal history of nicotine dependence; Z90.710 Acquired absence of both cervix and uterus; Z90.49 Acquired absence of other specified parts of digestive tract
CPT/HCPCS: 99211

== ENCOUNTER → 2020-05-08 | Outpatient (CLI) | payer MEDICARE, OTHER ==
[2020-05-08 13:41] VITALS: BP 124/80; PULSE 81; RESP 16; TEMP 98.2; BMI 23.8
--- NOTE | 2020-05-08 14:14 | P.HPBAR ---
Bariatric H&P - History & Physicial H&P Date: 05/08/20 History & Physicial: Visit/CC: SLEEVE F/U Patient initial contact: Initial weight: 95.708 kg Initial weight in pounds: 211.00 Height: 5 ft 4 in Initial BMI: 36.2 Last weight: Current weight: 63.049 kg Current weight in pounds: 139.00 Current BMI: 23.8 [place] body weight (based on NIH guidelines): 54.431 kg Excess body weight loss: 79.1% The patient is a 50 year-old F who presents for Bariatric Assessment. Patient presents today for sleeve gastrectomy fall. She lost another 2 pounds since her last visit. She has some mild GERD. Past Medical History Past Medical History: Cancer, Fibromyalgia, Hypertension, Neurologic Disorder, Osteoarthritis (OA), Rheumatoid Arthritis (RA) Additional Past Medical History / Comment(s): Cervical CA in her 20's. 3 bad di scs in spine, 2 in cervical; neuropathy legs/ feet. Intracranial HTN, affecting vision - loss 80% in Rt eye. History of Any Multi-Drug Resistant Organisms: None Reported Past Surgical History: Appendectomy, Section, Hysterectomy, Tonsillectomy Additional Past Surgical History / Comment(s): Colonoscopy Past Anesthesia/Blood Transfusion Reactions: Family History of Problems w/ Anesthesia, Motion Sickness, Postoperative Nausea & Vomiting (PONV) Additional Past Anesthesia/Blood Transfusion Reaction / Comm: Mother has PONV. Past Psychological History: Anxiety, Depression Additional Psychological History / Comment(s): Past situational depression. Smoking Status: Unknown if ever smoked Past Alcohol Use History: None Reported Additional Past Alcohol Use History / Comment(s): Smoked age 12, on/off, up to 1 ppd, quit 2015. No ETOH since 2008. Past Drug Use History: None Reported - Past Family History Mother Family Medical History: Cancer Additional Family Medical History / Comment(s): Uterine, Breast CA Surgical - Exam Vital Signs Temp Pulse Resp BP 98.2 F 81 16 124/80 05/08/20 13:38 05/08/20 13:38 05/08/20 13:38 05/08/20 13:38 - General well developed, well nourished, no distress - Eyes PERRL - ENT normal pinna - Neck no masses - Respiratory normal expansion - Cardiovascular Rhythm: regular - Abdomen Abdomen: soft, non tender Bariatric Assessment & Plan Plan: Status post sleeve gastrectomy. Patient has had excellent weight loss. She lost proximal E2 pounds since surgery. Her GERD is minimal will be observed. She'll follow-up in 8 weeks. Bariatric Checklist Checklist: Plan: Checklist: EGD: 1. Hiatal hernia: 2. H. Pylori: HgbA1c: Vitamin D: Smoking: Former smoker Primary care physician referral: Blanquita Camacho Psychiatry clearance: Cardiology clearance: Sleep study: Diet journal: VTE risk score: VTE risk level: Rehab needs at discharge:
== END | disposition home or self-care (01) ==
LOC: BARWHC3 13:15
PROVIDERS: ATTEND Surgery
DX: Z48.815 Encounter for surgical aftercare following surgery on the digestive system (principal); K21.9 Gastro-esophageal reflux disease without esophagitis; E66.01 Morbid (severe) obesity due to excess calories; Z90.710 Acquired absence of both cervix and uterus; Z98.84 Bariatric surgery status; Z90.49 Acquired absence of other specified parts of digestive tract; Z68.23 Body mass index [BMI] 23.0-23.9, adult
CPT/HCPCS: 99211

== ENCOUNTER → 2021-03-19 | Outpatient (CLI) | payer MEDICARE, OTHER ==
[2021-03-19 13:48] VITALS: BP 140/88; PULSE 89; RESP 18; TEMP 99.2; BMI 22.8
--- NOTE | 2021-04-26 12:59 | P.HPBAR ---
Bariatric H&P - History & Physicial H&P Date: 03/19/21 History & Physicial: Visit/CC: follow up Patient initial contact: Initial weight: 95.708 kg Initial weight in pounds: 211.00 Height: 5 ft 4 in Initial BMI: 36.2 Last weight: Current weight: 60.328 kg Current weight in pounds: 133.00 Current BMI: 22.8 [place] body weight (based on NIH guidelines): 54.431 kg Excess body weight loss: 85.7% The patient is a 50 year-old F who presents for Bariatric Assessment. Patient resents for bariatric follow-up. She has had GERD and also has developed a well-formed panniculus. She's lost in excess of 100 pounds Past Medical History Past Medical History: Cancer, Fibromyalgia, Hypertension, Neurologic Disorder, Osteoarthritis (OA), Rheumatoid Arthritis (RA) Additional Past Medical History / Comment(s): Cervical CA in her 20's. 3 bad discs in spine, 2 in cervical; neuropathy legs/ feet. Intracranial HTN, affecting vision - loss 80% in Rt eye. History of Any Multi-Drug Resistant Organisms: None Reported Past Surgical History: Appendectomy, Section, Hysterectomy, Tonsillectomy Additional Past Surgical History / Comment(s): Colonoscopy Past Anesthesia/Blood Transfusion Reactions: Family History of Problems w/ Anesthesia, Motion Sickness, Postoperative Nausea & Vomiting (PONV) Additional Past Anesthesia/Blood Transfusion Reaction / Comm: Mother has PONV. Past Psychological History: Anxiety, Depression Additional Psychological History / Comment(s): Past situational depression. Smoking Status: Unknown if ever smoked Past Alcohol Use History: None Reported Additional Past Alcohol Use History / Comment(s): Smoked age 12, on/off, up to 1 ppd, quit 2015. No ETOH since 2008. Past Drug Use History: None Reported - Past Family History Mother Family Medical History: Cancer Additional Family Medical History / Comment(s): Uterine, Breast CA Surgical - Exam Vital Signs Temp Pulse Resp BP 99.2 F 89 18 140/88 03/19/21 13:28 03/19/21 13:28 03/19/21 13:28 03/19/21 13:28 - General well developed, well nourished, no distress - Eyes PERRL - ENT normal pinna - Neck no masses - Respiratory normal expansion - Cardiovascular Rhythm: regular - Abdomen Well-formed panniculus with evidence of chronic skin irritation Abdomen: soft, non tender Bariatric Assessment & Plan Plan: Patient initial weight loss. Her GERD is minimal old observed. She is given information on panniculectomy. Bariatric Checklist Checklist: Plan: Checklist: EGD: 1. Hiatal hernia: 2. H. Pylori: HgbA1c: Vitamin D: Smoking: Former smoker Primary care physician referral: Dr. Zion Camacho Psychiatry clearance: Cardiology clearance: Sleep study: Diet journal: VTE risk score: VTE risk level: Rehab needs at discharge:
== END | disposition home or self-care (01) ==
LOC: BARWHC3 13:11
PROVIDERS: ATTEND Surgery
DX: E66.01 Morbid (severe) obesity due to excess calories (principal); I10 Essential (primary) hypertension; M06.9 Rheumatoid arthritis, unspecified; Z68.22 Body mass index [BMI] 22.0-22.9, adult; Z85.41 Personal history of malignant neoplasm of cervix uteri; Z86.59 Personal history of other mental and behavioral disorders; Z90.710 Acquired absence of both cervix and uterus; Z90.49 Acquired absence of other specified parts of digestive tract
CPT/HCPCS: 99212

== ENCOUNTER → 2021-03-21 | Outpatient (CLI) | payer MEDICARE, OTHER ==
[2021-03-21 18:48] LABS: HCT 43.4 % (37.2-46.3); HGB 14.1 g/dL (12.0-15.0); MCH 30.1 pg (27.0-32.0); MCHC 32.5 g/dL (32.0-37.0); MCV 92.5 fL (80.0-97.0); Mean Platelet Volume 10.3 fL (9.5-12.2); Platelet Count 313 X 10*3/uL (140-440); RBC 4.69 X 10*6/uL (4.10-5.20); WBC 5.18 X 10*3/uL (4.50-10.00)
[2021-03-21 23:48] LABS: % Iron Saturation 17.84 (12.00-45.00); African American GFR (CKD) 115.5 (60.0-200.0); Albumin 4.3 g/dL (3.80-4.90); Albumin/Globulin Ratio 1.65 (1.60-3.17); Anion Gap 7.4 mmol/L (4.00-12.00); BUN/Creat Ratio 15.71 Ratio (12.00-20.00); Calcium 9.2 mg/dL (8.7-10.3); Carbon Dioxide 26.6 mmol/L (21.6-31.8); Globulin 2.6 g/dL (1.6-3.3); Non-African American GFR(CKD) 99.6 (60.0-200.0); Potassium 5.3 mmol/L (3.5-5.5); Total Bilirubin 0.6 mg/dL (0.3-1.2); Total Protein 6.9 g/dL (6.2-8.2)
[2021-03-21 23:56] LABS: Ferritin 42.1 ng/mL (10.0-291.0)
[2021-03-22 11:55] LABS: Zinc, Serum 61 ug/dL (60-130)
[2021-03-23 06:37] LABS: Vitamin A 49 ug/dL (38-106)
[2021-03-23 14:24] LABS: Vit B1(Thiamine) 59 ug/L (38-122)
== END | disposition home or self-care (01) ==
LOC: LABWHC1 12:46
PROVIDERS: ATTEND Surgery
DX: D50.8 Other iron deficiency anemias (principal); E55.9 Vitamin D deficiency, unspecified; K90.9 Intestinal malabsorption, unspecified; T56.894A Toxic effect of other metals, undetermined, initial encounter
CPT/HCPCS: 36415; 80053; 82306; 82607; 82728; 82746; 83540; 83550; 83735; 84255; 84425; 84443; 84590; 84630; 85027

== ENCOUNTER → 2021-06-05 | Outpatient (CLI) | payer MEDICARE, OTHER ==
[2021-06-05 14:11] LABS: Basophils # (A) 0.1 k/uL (0-0.2); Basophils % (A) 1 %; Eosinophils # (A) 0.1 k/uL (0-0.7); Eosinophils % (A) 2 %; HGB 14.9 gm/dL (11.4-16.0); Lymphocytes # (A) 2.6 k/uL (1.0-4.8); Lymphocytes % (A) 46 %; MCH 30.6 pg (25.0-35.0); MCHC 32.3 g/dL (31.0-37.0); MCV 94.7 fL (80.0-100.0); Mean Platelet Volume 7.8; Monocytes # (A) 0.3 k/uL (0-1.0); Monocytes % (A) 5 %; Neutrophils # (A) 2.5 k/uL (1.3-7.7); Neutrophils % (A) 44 %; Platelet Count 266 k/uL (150-450); RBC 4.86 m/uL (3.80-5.40); RDW 13.8 % (11.5-15.5); WBC 5.6 k/uL (3.8-10.6)
[2021-06-05 14:25] LABS: ALT 12 U/L (4-34); AST 18 U/L (14-36); African American GFR (CKD) >90 (>60 ml/min/1.73 sqM); Albumin 4.1 g/dL (3.5-5.0); Alkaline Phosphatase 37 U/L (38-126); Anion Gap 8 mmol/L; Blood Urea Nitrogen 16 mg/dL (7-17); Carbon Dioxide 24 mmol/L (22-30); Chloride 107 mmol/L (98-107); Glucose 79 mg/dL (74-99); Non-African American GFR(CKD) >90 (>60 ml/min/1.73 sqM); Potassium 4.1 mmol/L (3.5-5.1); Sodium 139 mmol/L (137-145); Total Bilirubin 0.9 mg/dL (0.2-1.3); Total Protein 6.9 g/dL (6.3-8.2)
== END | disposition home or self-care (01) ==
LOC: LABPAT 12:37
PROVIDERS: ATTEND Surgery
DX: Z01.818 Encounter for other preprocedural examination (principal)
CPT/HCPCS: 36415; 80053; 85025; 93005

== ENCOUNTER 2021-06-12 07:34 | Observation (INO) | payer MEDICARE, OTHER ==
[2021-06-01 11:46] VITALS: BMI 22.6
[~2021-06-12 07:34] MED LIST changes: -CLINDAMYCIN 900 MG in DEXTROSE 5% IN WATER 50 ML IVPB ONE; +DEXAMETHASONE SOD PHOSPHATE 4 MG/ML 1 ML VIAL IV ONE; -ENOXAPARIN 40 MG/0.4 ML SYRINGE SQ ONE; -GENTAMICIN 350 MG in SODIUM CHLORIDE 0.9% 100 ML IVPB ONE; +LIDOCAINE 1% (10MG/ML) FOR IV START INTRADERMA PRN; +ONDANSETRON 4 MG/2 ML VIAL IVP ONE; +SCOPOLAMINE 1.5MG/72HR PATCH TRANSDERM ONE; +VANCOMYCIN 1,000 MG in SODIUM CHLORIDE 0.9% 250 ML IVPB PRN
[2021-06-12] MEDS: LACTATED RINGERS 1,000 ML IV SCH (08:35)
[2021-06-12] MEDS ORDERED: MIDAZOLAM 2 MG/2 ML VIAL IVP ONE (09:00)
--- NOTE | 2021-06-12 09:19 | P.GSHP ---
History of Present Illness H&P Date: 06/12/21 Chief Complaint: Panniculus Is a 51-year-old female who presents today for panniculectomy. Patient has a well-formed panniculus. 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 Patient aware the risks of surgery including the possible need for revisional cosmetic surgery. She understands is not a cosmetic procedure: Procedures remove redundant skin. Past Medical History Past Medical History: Cancer, Fibromyalgia, Neurologic Disorder, Osteoarthritis (OA), Rheumatoid Arthritis (RA) Additional Past Medical History / Comment(s): Cervical CA in her 20's. 3 bad discs in spine, 2 in cervical; neuropathy legs/ feet. Intracranial HTN, affecting vision - loss 80% in Rt eye,b/p normal after gastric sleeve History of Any Multi-Drug Resistant Organisms: None Reported Past Surgical History: Appendectomy, Bariatric Surgery, Section, Hysterectomy, Tonsillectomy Additional Past Surgical History / Comment(s): Colonoscopy,gastric sleeve Past Anesthesia/Blood Transfusion Reactions: Previous Problems w/ Anesthesia, Family History of Problems w/ Anesthesia, Motion Sickness, Postoperative Nausea & Vomiting (PONV) Additional Past Anesthesia/Blood Transfusion Reaction / Comment(s): DIFF INTUB.stated "was told by Anesthesia had a difficult time with intubation with Laparoscopic Gastric Sleeve Surgery 10-12-19 and has letter.Also,this is the only surgery I had problems with.". Mother has PONV. Past Psychological History: Anxiety, Depression Additional Psychological History / Comment(s): Past situational depression. Smoking Status: Former smoker Past Alcohol Use History: None Reported Additional Past Alcohol Use History / Comment(s): Smoked age 12, on/off, up to 1 ppd, quit 2015. No ETOH since 2008. Past Drug Use History: None Reported - Past Family History Mother Family Medical History: Cancer Additional Family Medical History / Comment(s): Uterine, Breast CA Medications and Allergies Home Medications Medication Instructions Recorded Confirmed Type Baclofen [Lioresal] 10 - 20 mg PO HS 06/21/19 06/01/21 History DULoxetine HCL [Cymbalta] 60 mg PO BID 06/21/19 06/01/21 History Pregabalin [Lyrica] 150 mg PO TID 06/21/19 06/01/21 History HYDROcodone/APAP 10-325MG [[place] 1 tab PO Q6H PRN 03/19/21 06/01/21 History 10-325] Meloxicam [Mobic] 15 mg PO DAILY 06/01/21 06/12/21 History Allergies Allergy/AdvReac Type Severity Reaction Status Date / Time adhesive Allergy Rash/Hives Verified 06/12/21 08:12 Iodinated Contrast Media Allergy Anaphylaxis Verified 06/12/21 08:12 [Iodinated Contrast- Oral and IV Dye] latex Allergy Rash/Hives Verified 06/12/21 08:12 morphine Allergy Rash/Hives Verified 06/12/21 08:12 Penicillins Allergy Anaphylaxis Verified 06/12/21 08:12 antibiotics AdvReac yeast Uncoded 06/12/21 08:12 infections Surgical - Exam Vital Signs Temp Pulse Resp BP Pulse Ox 97.8 F 90 16 109/58 99 06/12/21 08:11 06/12/21 08:11 06/12/21 08:11 06/12/21 08:11 06/12/21 08:11 - General well developed, well nourished, no distress - Eyes PERRL - ENT normal pinna - Neck no masses - Respiratory normal expansion - Cardiovascular Rhythm: regular - Abdomen Abdomen: soft, non tender Assessment and Plan Assessment: Panniculus. We'll perform panniculectomy.
[2021-06-12] MEDS ORDERED: LIDOCAINE 1% INJ 10MG/ML (20 ML MDV) ONE (09:27)
[2021-06-12] MEDS ORDERED: ROPIVACAINE 5 MG/ML 30 ML VIAL ONE (09:27)
[2021-06-12] MEDS ORDERED: HYDROmorphone (PF) 1 MG/ML ONE (09:27)
[2021-06-12] MEDS ORDERED: NEOSTIGMINE 1 MG/ML 10 ML VIAL ONE (09:27)
[2021-06-12] MEDS ORDERED: SUCCINYLCHOLINE CHLORIDE 100 MG/5 ML SYR IV ONE (09:27)
[2021-06-12] MEDS ORDERED: fentaNYL (PF) 50 MCG/ML 2 ML AMP ONE (09:27)
[2021-06-12] MEDS ORDERED: LIDOCAINE 1%-EPI 1:100,000 20 ML VIAL ONE (09:27)
[2021-06-12] MEDS ORDERED: PHENYLEPHRINE-0.9% NACL SYG 1,000 MCG/10 ML SYRINGE ONE (09:27)
[2021-06-12] MEDS ORDERED: PROPOFOL 10 MG/ML 20 ML VIAL IV ONE (09:27)
[2021-06-12] MEDS ORDERED: VECURONIUM 10 MG VIAL IV ONE (09:27)
[2021-06-12] MEDS ORDERED: GLYCOPYRROLATE 0.2 MG/ML 2 ML VIAL ONE (09:27)
[2021-06-12] MEDS ORDERED: LACTATED RINGERS 1,000 ML IV ONE ×2 (11:08→11:24)
[2021-06-12] MEDS ORDERED: ONDANSETRON 4 MG/2 ML VIAL IVP PRN (11:24)
[2021-06-12] MEDS ORDERED: NALOXONE 0.4 MG/ML 1 ML VIAL IV PRN (11:24)
--- NOTE | 2021-06-12 11:24 | P.OP ---
Date of Procedure: 06/12/21 Preoperative Diagnosis: Panniculus Postoperative Diagnosis: Panniculus Procedure(s) Performed: Panniculectomy Anesthesia: ROSE MARIE Surgeon: Rachid Porter Estimated Blood Loss (ml): 25 Pathology: other (Skin for disposal) Condition: stable Disposition: PACU Description of Procedure: PROCEDURE: The patient was placed on the operating table in supine position and received general anesthetic. The abdomen was prepped and draped in the usual sterile fashion. The lower skin incision was then made after the skin was marked with a marker. The incision ran from the pubic area to the level of the anterosuperior iliac spine. Using blunt and sharp dissection and electrocautery the subcutaneous tissues were then dissected down to the level of the fascia external oblique. Next, a kristina shaped incision was made around the umbilicus and the umbilicus was then dissected down to the level of the fascia external oblique. Care was taken to ensure that the umbilical stalk was wide enough in order to maintain viability of the umbilicus. After the umbilicus was dissected a 0 Vicryl suture was used to orientate the umbilicus. The suture was placed at the 12 o'clock position of the umbilicus. Following this the dissection was then made from the inferior pannicular incision cephalad. The xiphoid and costal margins were the limits of the dissection. Several small perforating vessels were ligated and cautery was used to maintain hemostasis. Once the dissection was performed the panniculus was then divided in the midline from the level of the umbilicus towards the pubic area. Downward and lateral traction was then placed on the abdominal wall and the skin was suitably marked for transection of the umbilicus. The skin was then incised and the Bovie was used for dissection of the pannicular flap. The abdominal muscles were plicated using #1 strata fix suture. Next, three 10-Green[place] DENNIS drains were placed in the wound and brought out through separate stab incisions at the level of the pubic area. The drains were secured to the skin using 3-0 nylon. After the DENNIS drains were secured, Thee's fascia was closed with interrupted 0 Vicryl sutures and then the skin was closed with running 3-0 Monocryl sutures. Prior to closure of the abdominal wall care was taken to ensure that both the abdominal wall and the abdominal wall flap were hemostatic. Next, the umbilicus was reattached to the abdominal wall. A marking line was made across the top of the iliac crest and this line intercepted with the midline abdominal wall line that had been previously made in the preoperative hold area. A small semicircular U-shaped incision was created at the in tersection of the two lines and the umbilicus was brought up through this incision. The umbilicus was then trimmed and secured to the skin using 3-0 Monocryl sutures. At this point the drains were placed to suction. The abdomen was cleaned and then sterile tape was placed over top of the incisions. Abdominal binder was then placed. The patient tolerated the procedure well. The patient was sent to recovery room in stable condition.
[2021-06-12] MEDS: fentaNYL (PF) 50 MCG/ML 2 ML AMP IV PRN ×2 (11:32→11:37)
[2021-06-12] MEDS ORDERED: fentaNYL (PF) 50 MCG/ML 2 ML AMP IVP ONE ×2 (11:44→12:17)
[2021-06-12] MEDS ORDERED: diphenhydrAMINE 50 MG/ML 1 ML VIAL ONE (11:45)
[2021-06-12] MEDS ORDERED: diphenhydrAMINE 50 MG/ML 1 ML VIAL IVP ONE (11:52)
[2021-06-12] MEDS: oxyCODONE-APAP 5-325MG 1 EACH TAB PO PRN ×3 (13:46→21:29)
[2021-06-12] MEDS: PREGABALIN 75 MG CAP PO SCH ×2 (17:15→21:33)
[2021-06-12] MEDS: HYDROmorphone 0.5 MG/0.5 ML SYRINGE IVP PRN ×2 (17:53→22:31)
[2021-06-12] MEDS ORDERED: BACLOFEN 10 MG TAB PO SCH (21:00)
[2021-06-12] MEDS: DULoxetine HCL 60 MG CAPSULE.DR PO SCH (21:29)
[2021-06-12] MEDS: DOCUSATE 100 MG CAP PO SCH (21:29)
[2021-06-13] MEDS: HYDROcodone/APAP 5-325MG 1 EACH TAB PO PRN ×3 (02:03→14:06)
[2021-06-13] MEDS: diphenhydrAMINE 25 MG CAP PO PRN ×2 (02:03→09:11)
[2021-06-13] MEDS: LACTATED RINGERS 1,000 ML IV SCH (07:32)
[2021-06-13] MEDS: DOCUSATE 100 MG CAP PO SCH (08:07)
[2021-06-13] MEDS: PREGABALIN 75 MG CAP PO SCH ×2 (08:07→15:00)
[2021-06-13] MEDS: DULoxetine HCL 60 MG CAPSULE.DR PO SCH (08:07)
[2021-06-13] MEDS ORDERED: ENOXAPARIN 40 MG/0.4 ML SYRINGE SQ SCH (09:00)
[2021-06-13] MEDS ORDERED: hydrOXYzine pamoate 25 MG CAP PO PRN (10:25)
[2021-06-13] MEDS: HYDROmorphone 0.5 MG/0.5 ML SYRINGE IVP PRN (11:03)
--- NOTE | 2021-06-13 13:43 | P.ANPRN ---
Procedure Note - Anesthesia - Nerve Block Performed Bilateral Erector Spinae Single Time Out Performed: Yes Date of Procedure: 06/12/21 Procedure Start Time: 08:59 Procedure Stop Time: 09:10 Location of Patient: PreOp Indication: Acute Post-Operative Pain, Requested by Surgeon Sedation Type: Sedate with meaningful contact maintained Preparation: Sterile Prep Position: Prone Needle Types: Pajunk Needle Gauge: 21 Ultrasound used to visualize needle placement: Yes Ultrasound used to observe medication spread: Yes Blood Aspirated: No Pain Paresthesia on Injection Noted: No Resistance on Injection: Normal Image Stored and Saved: Yes Events: Uneventful and Well Tolerated (ropi .5% 15cc plus xylo 1% with epi bilaterally at L3)
[2021-06-13 13:48] VITALS: BP 118/76; PULSE 90; RESP 16; TEMP 98.4
--- NOTE | 2021-06-13 14:04 | P.DS ---
Providers Date of admission: 06/13/21 13:39 Expected date of discharge: 06/13/21 Attending physician: Rachid Porter Consults: 06/12/21 11:24 Consult Physician Routine Consulting Provider: Zion Camacho Consult Reason/Comments: Medical management Do you want consulting provider notified?: Yes Primary care physician: Blanquita Camacho Hospital Course: Discharge diagnosis 1. Panniculus status post Panniculectomy Hospital course This is a 51-year-old female with a well-formed panniculus. 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 She is status post grier niculectomy. Patient tolerated surgery well. Her pain is controlled. She denies any nausea or vomiting. She is having flatus. She is up and ambulating. She denies any difficulty urinating. She is afebrile. She is stable for discharge. Please refer to chart for any further details. Physician Production Painter note has been reviewed by physician. Signing provider agrees with the documented findings, assessment, and plan of care. Patient Condition at Discharge: Stable Plan - Discharge Summary Discharge Rx Participant: Yes New Discharge Prescriptions: New Docusate [Colace] 100 mg PO BID #30 cap Continue DULoxetine HCL [Cymbalta] 60 mg PO BID Pregabalin [Lyrica] 150 mg PO TID Baclofen [Lioresal] 10 - 20 mg PO HS HYDROcodone/APAP 10-325MG [[place] 10-325] 1 tab PO Q6H PRN PRN Reason: Pain Discontinued Meloxicam [Mobic] 15 mg PO DAILY Discharge Medication List Baclofen [Lioresal] 10 - 20 mg PO HS 06/21/19 [History] DULoxetine HCL [Cymbalta] 60 mg PO BID 06/21/19 [History] Pregabalin [Lyrica] 150 mg PO TID 06/21/19 [History] HYDROcodone/APAP 10-325MG [[place] 10-325] 1 tab PO Q6H PRN 03/19/21 [History] Docusate [Colace] 100 mg PO BID #30 cap 06/13/21 [Rx] Follow up Appointment(s)/Referral(s): Rachid Porter MD [STAFF PHYSICIAN] - 1 Week Activity/Diet/Wound Care/Special Instructions: No driving while taking [place] No lifting over 10 pounds You may shower. No soaking or tub baths for 2 weeks Very light activity until you are reevaluated at your follow up appointment with your surgeon Keep a log of DENNIS drain output and bring with you to your follow-up appointment Milk/strip drains 2-3 times a day Discontinue taking Mobic until seen by surgeon Discharge Disposition: HOME SELF-CARE
== END 2021-06-13 15:57 | disposition home or self-care (01) ==
LOC: OR 07:34 → 4SSUR 14:15 → OR 06-13 13:32 → 4SSUR 06-13 13:39
PROVIDERS: ADMIT Surgery; ATTEND Surgery
DX: M79.3 Panniculitis, unspecified (principal); L98.7 Excessive and redundant skin and subcutaneous tissue; E65 Localized adiposity; M06.9 Rheumatoid arthritis, unspecified; M79.7 Fibromyalgia; F32.9 Major depressive disorder, single episode, unspecified; G62.9 Polyneuropathy, unspecified; G93.2 Benign intracranial hypertension; M19.90 Unspecified osteoarthritis, unspecified site; M50.90 Cervical disc disorder, unspecified, unspecified cervical region; H54.7 Unspecified visual loss; F41.9 Anxiety disorder, unspecified; Z79.1 Long term (current) use of non-steroidal anti-inflammatories (NSAID); Z79.899 Other long term (current) drug therapy; Z88.0 Allergy status to penicillin; Z88.1 Allergy status to other antibiotic agents; Z91.041 Radiographic dye allergy status; Z91.040 Latex allergy status; Z90.49 Acquired absence of other specified parts of digestive tract; Z98.84 Bariatric surgery status; Z98.891 History of uterine scar from previous surgery; Z85.41 Personal history of malignant neoplasm of cervix uteri; Z90.710 Acquired absence of both cervix and uterus; Z87.891 Personal history of nicotine dependence; Z88.5 Allergy status to narcotic agent; Z86.59 Personal history of other mental and behavioral disorders; Z80.3 Family history of malignant neoplasm of breast; Z80.49 Family history of malignant neoplasm of other genital organs
CPT/HCPCS: 15830; 15847; 97161; 64999; G0378; J2250; J3370; J1200; J1100; J2710; J2405; J2001; J1650; J3010; J1170 ×3; J2795; J2370; J0330; J2704; J1790

== ENCOUNTER → 2021-06-18 | Outpatient (CLI) | payer MEDICARE, OTHER ==
[2021-06-18 14:09] VITALS: BP 118/79; PULSE 86; RESP 18; TEMP 98.1; BMI 22.8
--- NOTE | 2021-07-03 10:57 | P.HPBAR ---
Bariatric H&P - History & Physicial H&P Date: 06/18/21 History & Physicial: Visit/CC: follow up / panni Patient initial contact: Initial weight: 95.708 kg Initial weight in pounds: 211.00 Height: 5 ft 4 in Initial BMI: 36.2 Last weight: Current weight: 60.328 kg Current weight in pounds: 133.00 Current BMI: 22.8 [place] body weight (based on NIH guidelines): 54.431 kg Excess body weight loss: 85.7% The patient is a 51 year-old F who presents for Bariatric Assessment. Patient presents today for postoperative visit after panniculus. She has no complaints. Past Medical History Past Medical History: Cancer, Fibromyalgia, Neurologic Disorder, Osteoarthritis (OA), Rheumatoid Arthritis (RA) Additional Past Medical History / Comment(s): Cervical CA in her 20's. 3 bad discs in spine, 2 in cervical; neuropathy legs/ feet. Intracranial HTN, affecting vision - loss 80% in Rt eye,b/p normal after gastric sleeve History of Any Multi-Drug Resistant Organisms: None Reported Past Surgical History: Appendectomy, Bariatric Surgery, Section, Hysterectomy, Tonsillectomy Additional Past Surgical History / Comment(s): Colonoscopy,gastric sleeve. PANNI 06/12/21 Past Anesthesia/Blood Transfusion Reactions: Previous Problems w/ Anesthesia, Family History of Problems w/ Anesthesia, Motion Sickness, Postoperative Nausea & Vomiting (PONV) Additional Past Anesthesia/Blood Transfusion Reaction / Comm: DIFF INTUB.stated "was told by Anesthesia had a difficult time with intubation with Laparoscopic Gastric Sleeve Surgery 10-12-19 and has letter.Also,this is the only surgery I had problems with.". Mother has PONV. Smoking Status: Never smoker - Past Family History Mother Family Medical History: Cancer Additional Family Medical History / Comment(s): Uterine, Breast CA Surgical - Exam Vital Signs Temp Pulse Resp BP 98.1 F 86 18 118/79 06/18/21 14:03 06/18/21 14:03 06/18/21 14:03 06/18/21 14:03 - General well developed, well nourished, no distress - Eyes PERRL - ENT normal pinna - Neck no masses - Respiratory normal expansion - Cardiovascular Rhythm: regular - Abdomen Incisions healing. No evidence of infection. Abdomen: soft, non tender Bariatric Assessment & Plan Plan: Postop panniculus. Patient doing quite well. She will continue DENNIS drains. S he'll follow-up for drain removal. Bariatric Checklist Checklist: Plan: Checklist: EGD: 1. Hiatal hernia: 2. H. Pylori: HgbA1c: Vitamin D: Smoking: Former smoker Primary care physician referral: Dr. Zion Camacho Psychiatry clearance: Cardiology clearance: Sleep study: Diet journal: VTE risk score: VTE risk level: Rehab needs at discharge:
== END ==
LOC: BARWHC3 13:30
PROVIDERS: ATTEND Surgery
DX: Z48.815 Encounter for surgical aftercare following surgery on the digestive system (principal); M19.90 Unspecified osteoarthritis, unspecified site; M06.9 Rheumatoid arthritis, unspecified; Z88.0 Allergy status to penicillin; Z88.5 Allergy status to narcotic agent; Z88.1 Allergy status to other antibiotic agents; Z91.041 Radiographic dye allergy status; Z91.048 Other nonmedicinal substance allergy status; Z87.891 Personal history of nicotine dependence
CPT/HCPCS: 99212

== ENCOUNTER → 2021-06-25 | Outpatient (CLI) | payer MEDICARE, OTHER ==
[2021-06-25 14:14] VITALS: BP 133/78; PULSE 102; RESP 18; TEMP 97.8; BMI 22.1
--- NOTE | 2021-06-26 12:41 | P.HPBAR ---
Bariatric H&P - History & Physicial H&P Date: 06/25/21 History & Physicial: Visit/CC: aidan follow up Patient initial contact: Initial weight: 95.708 kg Initial weight in pounds: 211.00 Height: 5 ft 4 in Initial BMI: 36.2 Last weight: Current weight: 58.513 kg Current weight in pounds: 129.00 Current BMI: 22.1 [place] body weight (based on NIH guidelines): 54.431 kg Excess body weight loss: 90.1% The patient is a 51 year-old F who presents for Bariatric Assessment. Patient presents today for a colectomy fall. She's doing quite well. She has no complains. Her drains are producing less than 10 mL per day. Past Medical History Past Medical History: Cancer, Fibromyalgia, Neurologic Disorder, Osteoarthritis (OA), Rheumatoid Arthritis (RA) Additional Past Medical History / Comment(s): Cervical CA in her 20's. 3 bad discs in spine, 2 in cervical; neuropathy legs/ feet. Intracranial HTN, affecting vision - loss 80% in Rt eye,b/p normal after gastric sleeve History of Any Multi-Drug Resistant Organisms: None Reported Past Surgical History: Appendectomy, Bariatric Surgery, Section, Hysterectomy, Tonsillectomy Additional Past Surgical History / Comment(s): Colonoscopy,gastric sleeve. AIDAN 06/12/21 Past Anesthesia/Blood Transfusion Reactions: Previous Problems w/ Anesthesia, Family History of Problems w/ Anesthesia, Motion Sickness, Postoperative Nausea & Vomiting (PONV) Additional Past Anesthesia/Blood Transfusion Reaction / Comm: DIFF INTUB.stated "was told by Anesthesia had a difficult time with intubation with Laparoscopic Gastric Sleeve Surgery 10-12-19 and has letter.Also,this is the only surgery I had problems with.". Mother has PONV. Past Psychological History: Anxiety, Depression Additional Psychological History / Comment(s): Past situational depression. Smoking Status: Never smoker Past Alcohol Use History: None Reported Additional Past Alcohol Use History / Comment(s): Smoked age 12, on/off, up to 1 ppd, quit 2015. No ETOH since 2008. Past Drug Use History: None Reported - Past Family History Mother Family Medical History: Cancer Additional Family Medical History / Comment(s): Uterine, Breast CA Surgical - Exam Vital Signs Temp Pulse Resp BP 97.8 F 102 H 18 133/78 06/25/21 14:10 06/25/21 14:10 06/25/21 14:10 06/25/21 14:10 - General well developed, well nourished, no distress - Eyes PERRL - ENT normal pinna - Neck no masses - Respiratory normal expansion - Cardiovascular Rhythm: regular Bariatric Assessment & Plan Plan: Patient's DENNIS drains removed. She will follow-up in one week. Bariatric Checklist Checklist: Plan: Checklist: EGD: 1. Hiatal hernia: 2. H. Pylori: HgbA1c: Vitamin D: Smoking: Former smoker Primary care physician referral: Dr. Zion Camacho Psychiatry clearance: Cardiology clearance: Sleep study: Diet journal: VTE risk score: VTE risk level: Rehab needs at discharge:
== END ==
LOC: BARWHC3 13:31
PROVIDERS: ATTEND Surgery
DX: Z48.03 Encounter for change or removal of drains (principal); M06.9 Rheumatoid arthritis, unspecified; M19.90 Unspecified osteoarthritis, unspecified site; F41.9 Anxiety disorder, unspecified; F32.9 Major depressive disorder, single episode, unspecified; Z87.891 Personal history of nicotine dependence; Z98.84 Bariatric surgery status; Z88.0 Allergy status to penicillin; Z88.5 Allergy status to narcotic agent; Z88.1 Allergy status to other antibiotic agents; Z91.040 Latex allergy status; Z91.048 Other nonmedicinal substance allergy status; Z91.041 Radiographic dye allergy status
CPT/HCPCS: 99212

== ENCOUNTER → 2021-07-02 | Outpatient (CLI) | payer MEDICARE, OTHER ==
[2021-07-02 13:53] VITALS: BP 117/86; PULSE 103; RESP 18; TEMP 98.5; BMI 21.9
--- NOTE | 2021-07-02 14:20 | P.HPBAR ---
Bariatric H&P - History & Physicial H&P Date: 07/02/21 History & Physicial: Visit/CC: BJORN follow up Patient initial contact: Initial weight: 95.708 kg Initial weight in pounds: 211.00 Height: 5 ft 4 in Initial BMI: 36.2 Last weight: Current weight: 58.06 kg Current weight in pounds: 128.00 Current BMI: 21.9 [place] body weight (based on NIH guidelines): 54.431 kg Excess body weight loss: 91.2% The patient is a 51 year-old F who presents for Bariatric Assessment. Patient presents today for patient follow-up. She is doing quite well. She's had some minimal GERD. He states her panniculectomy has healed well. Past Medical History Past Medical History: Cancer, Fibromyalgia, Neurologic Disorder, Osteoarthritis (OA), Rheumatoid Arthritis (RA) Additional Past Medical History / Comment(s): Cervical CA in her 20's. 3 bad discs in spine, 2 in cervical; neuropathy legs/ feet. Intracranial HTN, affecting vision - loss 80% in Rt eye,b/p normal after gastric sleeve History of Any Multi-Drug Resistant Organisms: None Reported Past Surgical History: Appendectomy, Bariatric Surgery, Section, Hysterectomy, Tonsillectomy Additional Past Surgical History / Comment(s): Colonoscopy,gastric sleeve. BJORN 06/12/21 Past Anesthesia/Blood Transfusion Reactions: Previous Problems w/ Anesthesia, Family History of Problems w/ Anesthesia, Motion Sickness, Postoperative Nausea & Vomiting (PONV) Additional Past Anesthesia/Blood Transfusion Reaction / Comm: DIFF INTUB.stated "was told by Anesthesia had a difficult time with intubation with Laparoscopic Gastric Sleeve Surgery 10-12-19 and has letter.Also,this is the only surgery I had problems with.". Mother has PONV. Past Psychological History: Anxiety, Depression Additional Psychological History / Comment(s): Past situational depression. Smoking Status: Never smoker Past Alcohol Use History: None Reported Additional Past Alcohol Use History / Comment(s): Smoked age 12, on/off, up to 1 ppd, quit 2015. No ETOH since 2008. Past Drug Use History: None Reported - Past Family History Mother Family Medical History: Cancer Additional Family Medical History / Comment(s): Uterine, Breast CA Surgical - Exam Vital Signs Temp Pulse Resp BP 98.5 F 103 H 18 117/86 07/02/21 13:48 07/02/21 13:48 07/02/21 13:48 07/02/21 13:48 - General well developed, well nourished, no distress - Eyes PERRL - ENT normal pinna - Neck no masses - Respiratory normal expansion - Cardiovascular Rhythm: regular - Abdomen Abdomen: soft, non tender Bariatric Assessment & Plan Plan: Patient's urine is minimal reserve. She'll follow-up in 3 months. Bariatric Checklist Checklist: Plan: Checklist: EGD: 1. Hiatal hernia: 2. H. Pylori: HgbA1c: Vitamin D: Smoking: Former smoker Primary care physician referral: Dr. Zion Camacho Psychiatry clearance: Cardiology clearance: Sleep study: Diet journal: VTE risk score: VTE risk level: Rehab needs at discharge:
== END ==
LOC: BARWHC3 13:21
PROVIDERS: ATTEND Surgery
DX: Z09 Encounter for follow-up examination after completed treatment for conditions other than malignant neoplasm (principal); K21.9 Gastro-esophageal reflux disease without esophagitis; M19.90 Unspecified osteoarthritis, unspecified site; M06.9 Rheumatoid arthritis, unspecified; F41.9 Anxiety disorder, unspecified; F32.9 Major depressive disorder, single episode, unspecified; Z98.84 Bariatric surgery status; Z91.048 Other nonmedicinal substance allergy status; Z91.041 Radiographic dye allergy status; Z91.040 Latex allergy status; Z88.0 Allergy status to penicillin; Z88.1 Allergy status to other antibiotic agents; Z88.6 Allergy status to analgesic agent; Z87.891 Personal history of nicotine dependence
CPT/HCPCS: 99212

== ENCOUNTER → 2021-11-05 | Outpatient (CLI) | payer MEDICARE, OTHER ==
[2021-11-05 14:07] VITALS: BP 120/82; PULSE 96; TEMP 98.2; BMI 22.3
--- NOTE | 2021-11-05 14:09 | P.HPBAR ---
Bariatric H&P - History & Physicial H&P Date: 11/05/21 History & Physicial: Visit/CC: two year follow up Patient initial contact: Initial weight: 95.708 kg Initial weight in pounds: 211.00 Height: 5 ft 4 in Initial BMI: 36.2 Last weight: Current weight: 58.967 kg Current weight in pounds: 130.00 Current BMI: 22.3 [place] body weight (based on NIH guidelines): 54.431 kg Excess body weight loss: 89.0% The patient is a 51 year-old F who presents for Bariatric Assessment. Patient presents today for bariatric follow-up. She's not been seen some time. Weight is stable. She's had mild GERD. She does have some complaints of some mild abdominal pain on the lateral aspect of her panniculectomy scar Past Medical History Past Medical History: Cancer, Fibromyalgia, Neurologic Disorder, Osteoarthritis (OA), Rheumatoid Arthritis (RA) Additional Past Medical History / Comment(s): Cervical CA in her 20's. 3 bad discs in spine, 2 in cervical; neuropathy legs/ feet. Intracranial HTN, affecting vision - loss 80% in Rt eye,b/p normal after gastric sleeve History of Any Multi-Drug Resistant Organisms: None Reported Past Surgical History: Appendectomy, Bariatric Surgery, Section, Hysterectomy, Tonsillectomy Additional Past Surgical History / Comment(s): Colonoscopy,gastric sleeve. PANNI 06/12/21 Past Anesthesia/Blood Transfusion Reactions: Previous Problems w/ Anesthesia, Family History of Problems w/ Anesthesia, Motion Sickness, Postoperative Nausea & Vomiting (PONV) Additional Past Anesthesia/Blood Transfusion Reaction / Comm: DIFF INTUB.stated "was told by Anesthesia had a difficult time with intubation with Laparoscopic Gastric Sleeve Surgery 10-12-19 and has letter.Also,this is the only surgery I had problems with.". Mother has PONV. Smoking Status: Never smoker - Past Family History Mother Family Medical History: Cancer Additional Family Medical History / Comment(s): Uterine, Breast CA Surgical - Exam Vital Signs Temp Pulse BP 98.2 F 96 120/82 11/05/21 13:52 11/05/21 13:52 11/05/21 13:52 - General well developed, well nourished, no distress - Eyes PERRL - ENT normal pinna - Abdomen Abdomen: soft, non tender Bariatric Assessment & Plan Plan: Resolving morbid obesity. Patient is GERD is minimal will be observed. She'll follow-up in 3 months. Bariatric Checklist Checklist: Plan: Checklist: EGD: 1. Hiatal hernia: 2. H. Pylori: HgbA1c: Vitamin D: Smoking: Former smoker Primary care physician referral: Dr. Zion Camacho Psychiatry clearance: Cardiology clearance: Sleep study: Diet journal: VTE risk score: VTE risk level: Rehab needs at discharge:
== END ==
LOC: BARWHC3 13:28
PROVIDERS: ATTEND Surgery
DX: E66.01 Morbid (severe) obesity due to excess calories (principal); K21.9 Gastro-esophageal reflux disease without esophagitis; M19.90 Unspecified osteoarthritis, unspecified site; M06.9 Rheumatoid arthritis, unspecified; Z98.84 Bariatric surgery status; Z68.22 Body mass index [BMI] 22.0-22.9, adult; Z79.899 Other long term (current) drug therapy; Z91.048 Other nonmedicinal substance allergy status; Z91.041 Radiographic dye allergy status; Z91.040 Latex allergy status; Z88.5 Allergy status to narcotic agent; Z88.0 Allergy status to penicillin; Z88.1 Allergy status to other antibiotic agents; Z87.891 Personal history of nicotine dependence
CPT/HCPCS: 99211

== ENCOUNTER → 2022-04-22 | Outpatient (CLI) | payer MEDICARE, OTHER ==
[2022-04-22 14:29] VITALS: BP 142/93; PULSE 96; TEMP 98.2; BMI 22.4
--- NOTE | 2022-06-25 12:14 | P.HPBAR ---
Bariatric H&P - History & Physicial H&P Date: 04/22/22 History & Physicial: Visit/CC: aidan f/u Patient initial contact: Initial weight: 95.708 kg Initial weight in pounds: 211.00 Height: 5 ft 4 in Initial BMI: 36.2 Last weight: Current weight: 59.421 kg Current weight in pounds: 131.00 Current BMI: 22.4 [place] body weight (based on NIH guidelines): 54.431 kg Excess body weight loss: 87.9% The patient is a 52 year-old F who presents for Bariatric Assessment. Patient presents today for bariatric follow-up. She has some myoclonus of GERD. Past Medical History Past Medical History: Cancer, Fibromyalgia, Neurologic Disorder, Osteoarthritis (OA), Rheumatoid Arthritis (RA) Additional Past Medical History / Comment(s): Cervical CA in her 20's. 3 bad discs in spine, 2 in cervical; neuropathy legs/ feet. Intracranial HTN, affecting vision - loss 80% in Rt eye,b/p normal after gastric sleeve History of Any Multi-Drug Resistant Organisms: None Reported Past Surgical History: Appendectomy, Bariatric Surgery, Section, Hysterectomy, Tonsillectomy Additional Past Surgical History / Comment(s): Colonoscopy,gastric sleeve. AIDAN 06/12/21 Past Anesthesia/Blood Transfusion Reactions: Previous Problems w/ Anesthesia, Family History of Problems w/ Anesthesia, Motion Sickness, Postoperative Nausea & Vomiting (PONV) Additional Past Anesthesia/Blood Transfusion Reaction / Comm: DIFF INTUB.stated "was told by Anesthesia had a difficult time with intubation with Laparoscopic Gastric Sleeve Surgery 10-12-19 and has letter.Also,this is the only surgery I had problems with.". Mother has PONV. Past Psychological History: Anxiety, Depression Additional Psychological History / Comment(s): Past situational depression. Smoking Status: Never smoker Past Alcohol Use History: None Reported Additional Past Alcohol Use History / Comment(s): Smoked age 12, on/off, up to 1 ppd, quit 2015. No ETOH since 2008. Past Drug Use History: None Reported - Past Family History Mother Family Medical History: Cancer Additional Family Medical History / Comment(s): Uterine, Breast CA Surgical - Exam Vital Signs Temp Pulse BP 98.2 F 96 142/93 04/22/22 14:22 04/22/22 14:22 04/22/22 14:22 - General well developed, well nourished, no distress - Eyes PERRL - ENT normal pinna - Neck no masses - Respiratory normal expansion - Cardiovascular Rhythm: regular - Abdomen Panniculectomy site healing Abdomen: soft, non tender Bariatric Assessment & Plan Plan: Improving morbid obesity. Patient's GERD is minimal and observed. Her BMI is 22 Bariatric Checklist Checklist: Plan: Checklist: EGD: 1. Hiatal hernia: 2. H. Pylori: HgbA1c: Vitamin D: Smoking: Former smoker Primary care physician referral: Dr. Zion Camacho Psychiatry clearance: Cardiology clearance: Sleep study: Diet journal: VTE risk score: VTE risk level: Rehab needs at discharge:
== END | disposition home or self-care (01) ==
LOC: BARWHC3 13:53
PROVIDERS: ATTEND Surgery
DX: E66.01 Morbid (severe) obesity due to excess calories (principal); K21.9 Gastro-esophageal reflux disease without esophagitis; Z68.22 Body mass index [BMI] 22.0-22.9, adult
CPT/HCPCS: 99211